=== PATIENT | male | born 1950 | race Caucasian/White ===

== ENCOUNTER 2022-06-10 17:13 | Inpatient (IN) ==
--- NOTE | 2022-06-10 17:44 | Emergency Department Note ---
Fall HPI General Chief Complaint: Fall Time Seen by Provider: 06/10/22 17:17 Source: patient and EMS Mode of arrival: wheelchair History of Present Illness HPI Narrative: Narrative: Related Data Home Medications Medication Instructions Recorded Confirmed cholecalciferol (vitamin D3) 25 2,000 unit PO QDAY 03/30/19 04/14/22 mcg (1,000 unit) capsule levothyroxine 200 mcg tablet 200 mcg PO QAM 03/30/19 04/14/22 (Synthroid) omeprazole 20 mg tablet,delayed 20 mg PO QDAY 03/30/19 04/14/22 release sildenafil 100 mg tablet (Viagra) 100 mg PO DIRECTED 03/30/19 04/14/22 trazodone 100 mg tablet 100 mg PO QHS 03/30/19 04/14/22 vitamin B complex PO 03/30/19 04/14/22 bupropion HCl 300 mg 24 hr tablet, 300 mg PO QAM 06/10/21 04/14/22 extended release carbamide peroxide 6.5 % ear drops 5 drp otic (ear) QDAY 06/10/21 04/14/22 fluticasone 250 mcg-salmeterol 50 1 inh inhalation BID 06/10/21 04/14/22 mcg/dose blistr powdr for inhalation food supplemt, lactose-reduced ea PO 06/10/21 04/14/22 gabapentin 300 mg capsule See Rx Instructions PO QID 06/10/21 04/14/22 nicotine (polacrilex) 2 mg buccal 2 mg buccal Q4H PRN 06/10/21 04/14/22 mini lozenge sertraline 100 mg tablet 300 mg PO QDAY 06/10/21 04/14/22 oxybutynin chloride 5 mg tablet 5 mg PO BID 10/29/21 04/14/22 prazosin 1 mg capsule 3 mg PO ONCE 10/29/21 04/14/22 propranolol 60 mg tablet 80 mg PO QDAY 10/29/21 04/14/22 Previous Rx's Medication Instructions Recorded carisoprodol 350 mg tablet (Soma) 350 mg PO BID PRN muscle pain #60 09/21/21 tabs cephalexin 500 mg capsule 500 mg PO BID #20 caps 01/27/22 hydrocodone 10 mg-acetaminophen 1 tab PO Q4-6H PRN pain #240 tabs 04/26/22 325 mg tablet ondansetron 4 mg disintegrating 4 - 8 mg PO Q6H PRN nausea and 05/09/22 tablet vomiting #20 tabs Allergies Allergy/AdvReac Type Severity Reaction Status Date / Time indomethacin [From Indocin] Allergy Unknown Unknown Verified 04/14/22 08:15 NSAIDS (Non-Steroidal Allergy Unknown Unknown Verified 04/14/22 08:15 Anti-Inflamma metformin AdvReac Diarrhea Verified 04/14/22 08:15 morphine AdvReac Hallucinati Verified 04/14/22 08:15 ng Review of Systems ROS ROS Narrative: Narrative: [facility] Narr[facility] Patient History Narrative: Narrative: Medical/Surgical/Family History All Active Problems (Updated 05/09/22 @ 16:49 by Pavan Hsu MD) Enteritis (Acute) Vomiting and diarrhea (Acute) Inclusion cyst (Acute) Concussion (Acute) Hypotension (Acute) Chronic pain (Acute) Right humeral fracture (Acute) Parkinsonian syndrome (Acute) Acute UTI (Acute) DDD (degenerative disc disease), cervical (Acute) Bladder cancer (Acute) Knee strain (Acute) Fall (Acute) History of knee replacement (Acute) Knee injury (Acute) Initial Medicare annual wellness visit (Acute) Pain management (Acute) Encounter for Health Maintenance Examination in Adult (Acute) History of colonoscopy (Chronic 04/29/14) History of total left knee replacement (Chronic ~06/2010) History of total right knee replacement (Chronic 07/13/04) History of surgery (Chronic) PUD (peptic ulcer disease) (Chronic ~09/2008) Resting tremor (Chronic) Foot drop, left (Chronic) GERD (gastroesophageal reflux disease) (Chronic) Osteoarthritis of right knee (Chronic) Tinnitus (Chronic) Hyperplastic colonic polyp (Chronic) Osteoarthritis of left knee (Chronic) Gastric ulcer, acute (Chronic) Allergic rhinitis (Chronic) PTSD (post-traumatic stress disorder) (Chronic) Neoplasm of uncertain behavior of skin (Chronic) Hypothyroidism (Chronic) Hyperlipidemia (Chronic) Dizziness (Chronic) Anemia (Chronic) Depression (Chronic) Right distal ureteral calculus (Chronic) Diabetes mellitus (Chronic) Other specified arthritis, right hand (Chronic) DDD (degenerative disc disease), lumbar (Chronic) Spondylolisthesis (Chronic) Abnormality of gait (Chronic) Carpal tunnel syndrome, right (Chronic) Encounter for long-term use of opiate analgesic (Chronic) Hypertension (Chronic) Elevated PSA (Chronic) BPH with obstruction/lower urinary tract symptoms (Chronic) Incomplete bladder emptying (Chronic) Kidney stone (Chronic) Prostate cancer (Chronic ~10/2018) Overactive bladder (Chronic) Foot sprain (Chronic) Medical History Abnormality of gait Allergic rhinitis Anemia BPH with obstruction/lower urinary tract symptoms Carpal tunnel syndrome, right Chronic pain DDD (degenerative disc disease), lumbar Depression Diabetes mellitus Dizziness Elevated PSA Encounter for long-term use of opiate analgesic Fall Foot drop, left Gastric ulcer, acute GERD (gastroesophageal reflux disease) Hyperlipidemia Hyperplastic colonic polyp Hypertension Hypothyroidism Incomplete bladder emptying Kidney stone Knee injury Knee strain Neoplasm of uncertain behavior of skin Osteoarthritis of left knee Osteoarthritis of right knee Other specified arthritis, right hand Overactive bladder Prostate cancer (~10/2018) referred to Carlo Saba MD PTSD (post-traumatic stress disorder) [facility] Vet PUD (peptic ulcer disease) (~09/2008) Resting tremor Right distal ureteral calculus Spondylolisthesis Tinnitus Surgical History History of bladder surgery x3 d/t cancer 2020 History of colonoscopy (04/29/14) History of knee replacement History of neck surgery d/t cancer 2020 History of surgery Nerve implant stimulator 05/09 - DDD L-S, Removed not effective. History of total left knee replacement (~06/2010) History of total right knee replacement (07/13/04) Dr Duarte Family History Other No pertinent family history Social History Alcohol Intake Frequency: does not drink Substance Use: does not use Exam Narrative Narrative: Narrative: Course Vital Signs Vital signs: Vital Signs Temperature 97.8 F 06/10/22 17:31 Pulse Rate 85 06/10/22 17:31 Respiratory Rate 16 06/10/22 17:31 Blood Pressure 119/70 06/10/22 17:31 Pulse Oximetry (%) 96 06/10/22 17:31 Temperature 97.8 F 06/10/22 17:31 Pulse Rate 85 06/10/22 17:31 Respiratory Rate 16 06/10/22 17:31 Blood Pressure 119/70 06/10/22 17:31 Pulse Oximetry (%) 96 06/10/22 17:31 MDM MDM Narrative Medical decision making narrative: Narrative: Discharge Plan Patient/Caregiver Discharge Instructions Follow up with: Storm Costa MD [Primary Care Provider] - Prescriptions: No Action sertraline 100 mg tablet 300 mg PO QDAY carisoprodol [Soma] 350 mg tablet 350 mg PO BID PRN (Reason: muscle pain) Qty: 60 5RF hydrocodone-acetaminophen 10-325 mg tablet 1 tab PO Q4-6H PRN (Reason: pain) Qty: 240 0RF Rx Instructions: Refill today 05/28/21 due to holidays ss trazodone 100 mg tablet 100 mg PO QHS omeprazole 20 mg tablet,delayed release (DR/EC) 20 mg PO QDAY cholecalciferol (vitamin D3) 1,000 unit capsule 2,000 unit PO QDAY sildenafil [Viagra] 100 mg tablet 100 mg PO DIRECTED Rx Instructions: no more than 1 dose per day/ 4 per month levothyroxine [Synthroid] 200 mcg tablet 200 mcg PO QAM vitamin B complex PO gabapentin 300 mg capsule See Rx Instructions PO QID Rx Instructions: 2 caps every morning and 4 caps every night cephalexin 500 mg capsule 500 mg PO BID Qty: 20 1RF bupropion HCl 300 mg tablet extended release 24 hr 300 mg PO QAM carbamide peroxide 6.5 % drops 5 drp otic (ear) QDAY fluticasone propion-salmeterol 250-50 mcg/dose blister with device 1 inh inhalation BID nicotine (polacrilex) 2 mg mini lozenge 2 mg buccal Q4H PRN food supplemt, lactose-reduced Liquid PO oxybutynin chloride 5 mg tablet 5 mg PO BID propranolol 60 mg tablet 80 mg PO QDAY prazosin 1 mg capsule 3 mg PO ONCE ondansetron 4 mg tablet,disintegrating 4 - 8 mg PO Q6H PRN (Reason: nausea and vomiting) Qty: 20 0RF
[2022-06-10] MEDS ORDERED: NICOTINE 14 MG PATCH TOPICAL ONE (17:55)
--- NOTE | 2022-06-10 17:55 | Emergency Department Note ---
HPI General Chief complaint: Fall Time Seen by Provider: 06/10/22 17:17 Source: patient, family and EMS Mode of arrival: EMS Limitations: no limitations History of Present Illness HPI Narrative: Narrative: Patient presents ED via EMS with complaints of altered mental status. Daughter was at bedside states that patient fell yesterday and has a contusion on the back of his head. She states that he has not been acting right seemed more confused and slower to answer questions. She does not know if he lost consci ousness or just found him on the floor. She also reports that he is stating that he is peeing blood. Patient himself denies fever, chills, nausea, vomiting, headache, vision changes, cardiac chest pain, heart palpitation, shortness of breath, dysuria. When asked if he is peeing blood he says he b elieves so. He reports a history of bladder cancer. Denies any blood thinner use. Denies any other alleviating or aggravating factors. Related Data Home Medications Medication Instructions Recorded Confirmed cholecalciferol (vitamin D3) 25 2,000 unit PO QDAY 03/30/19 04/14/22 mcg (1,000 unit) capsule levothyroxine 200 mcg tablet 200 mcg PO QAM 03/30/19 04/14/22 (Synthroid) omeprazole 20 mg tablet,delayed 20 mg PO QDAY 03/30/19 04/14/22 release sildenafil 100 mg tablet (Viagra) 100 mg PO DIRECTED 03/30/19 04/14/22 trazodone 100 mg tablet 100 mg PO QHS 03/30/19 04/14/22 vitamin B complex PO 03/30/19 04/14/22 bupropion HCl 300 mg 24 hr tablet, 300 mg PO QAM 06/10/21 04/14/22 extended release carbamide peroxide 6.5 % ear drops 5 drp otic (ear) QDAY 06/10/21 04/14/22 fluticasone 250 mcg-salmeterol 50 1 inh inhalation BID 06/10/21 04/14/22 mcg/dose blistr powdr for inhalation food supplemt, lactose-reduced ea PO 06/10/21 04/14/22 gabapentin 300 mg capsule See Rx Instructions PO QID 06/10/21 04/14/22 nicotine (polacrilex) 2 mg buccal 2 mg buccal Q4H PRN 06/10/21 04/14/22 mini lozenge sertraline 100 mg tablet 300 mg PO QDAY 06/10/21 04/14/22 oxybutynin chloride 5 mg tablet 5 mg PO BID 10/29/21 04/14/22 prazosin 1 mg capsule 3 mg PO ONCE 10/29/21 04/14/22 propranolol 60 mg tablet 80 mg PO QDAY 10/29/21 04/14/22 Previous Rx's Medication Instructions Recorded carisoprodol 350 mg tablet (Soma) 350 mg PO BID PRN muscle pain #60 09/21/21 tabs cephalexin 500 mg capsule 500 mg PO BID #20 caps 01/27/22 hydrocodone 10 mg-acetaminophen 1 tab PO Q4-6H PRN pain #240 tabs 04/26/22 325 mg tablet ondansetron 4 mg disintegrating 4 - 8 mg PO Q6H PRN nausea and 05/09/22 tablet vomiting #20 tabs Allergies Allergy/AdvReac Type Severity Reaction Status Date / Time indomethacin [From Indocin] Allergy Unknown Unknown Verified 04/14/22 08:15 NSAIDS (Non-Steroidal Allergy Unknown Unknown Verified 04/14/22 08:15 Anti-Inflamma metformin AdvReac Diarrhea Verified 04/14/22 08:15 morphine AdvReac Hallucinati Verified 04/14/22 08:15 ng Review of Systems ROS ROS Narrative: Narrative: All systems ED: reviewed and negative except as stated. [facility] Narrative Patient History Narrative: Narrative: Medical/Surgical/Family History All Active Problems (Updated 06/10/22 @ 21:17 by Eleazar Whitmore DO) Enteritis (Acute) Vomiting and diarrhea (Acute) Sepsis (Acute) Bilateral pneumonia (Acute) Altered mental status (Acute) Inclusion cyst (Acute) Concussion (Acute) Hypotension (Acute) Chronic pain (Acute) Right humeral fracture (Acute) Parkinsonian syndrome (Acute) Acute UTI (Acute) DDD (degenerative disc disease), cervical (Acute) Bladder cancer (Acute) Knee strain (Acute) Fall (Acute) History of knee replacement (Acute) Knee injury (Acute) Initial Medicare annual wellness visit (Acute) Pain management (Acute) Encounter for Health Maintenance Examination in Adult (Acute) History of colonoscopy (Chronic 04/29/14) History of total left knee replacement (Chronic ~06/2010) History of total right knee replacement (Chronic 07/13/04) History of surgery (Chronic) PUD (peptic ulcer disease) (Chronic ~09/2008) Resting tremor (Chronic) Foot drop, left (Chronic) GERD (gastroesophageal reflux disease) (Chronic) Osteoarthritis of right knee (Chronic) Tinnitus (Chronic) Hyperplastic colonic polyp (Chronic) Osteoarthritis of left knee (Chronic) Gastric ulcer, acute (Chronic) Allergic rhinitis (Chronic) PTSD (post-traumatic stress disorder) (Chronic) Neoplasm of uncertain behavior of skin (Chronic) Hypothyroidism (Chronic) Hyperlipidemia (Chronic) Dizziness (Chronic) Anemia (Chronic) Depression (Chronic) Right distal ureteral calculus (Chronic) Diabetes mellitus (Chronic) Other specified arthritis, right hand (Chronic) DDD (degenerative disc disease), lumbar (Chronic) Spondylolisthesis (Chronic) Abnormality of gait (Chronic) Carpal tunnel syndrome, right (Chronic) Encounter for long-term use of opiate analgesic (Chronic) Hypertension (Chronic) Elevated PSA (Chronic) BPH with obstruction/lower urinary tract symptoms (Chronic) Incomplete bladder emptying (Chronic) Kidney stone (Chronic) Prostate cancer (Chronic ~10/2018) Overactive bladder (Chronic) Foot sprain (Chronic) Medical History Abnormality of gait Allergic rhinitis Anemia BPH with obstruction/lower urinary tract symptoms Carpal tunnel syndrome, right Chronic pain DDD (degenerative disc disease), lumbar Depression Diabetes mellitus Dizziness Elevated PSA Encounter for long-term use of opiate analgesic Fall Foot drop, left Gastric ulcer, acute GERD (gastroesophageal reflux disease) Hyperlipidemia Hyperplastic colonic polyp Hypertension Hypothyroidism Incomplete bladder emptying Kidney stone Knee injury Knee strain Neoplasm of uncertain behavior of skin Osteoarthritis of left knee Osteoarthritis of right knee Other specified arthritis, right hand Overactive bladder Prostate cancer (~10/2018) referred to Carlo Saba MD PTSD (post-traumatic stress disorder) [facility] Vet PUD (peptic ulcer disease) (~09/2008) Resting tremor Right distal ureteral calculus Spondylolisthesis Tinnitus Surgical History History of bladder surgery x3 d/t cancer 2020 History of colonoscopy (04/29/14) History of knee replacement History of neck surgery d/t cancer 2020 History of surgery Nerve implant stimulator 05/09 - DDD L-S, Removed not effective. History of total left knee replacement (~06/2010) History of total right knee replacement (07/13/04) Dr Duarte Family History Other No pertinent family history Social History Alcohol Intake Frequency: does not drink Substance Use: does not use Exam Narrative Narrative: Narrative: General Limitations: no limitations General appearance: Absent in distress Expanded Head Head image: 1. Head contusion Eye Eye: Present PERRL and EOMI ENT ENT: Present normal oropharynx and mucous membranes moist Neck Neck: Present normal inspection and full ROM Chest Chest: Present normal inspection; Absent tenderness Respiratory Respiratory: Present normal lung sounds bilaterally; Absent respiratory distress Cardiovascular Cardiovascular: Present regular rate and normal rhythm Adbominal Abdominal: Present soft; Absent tenderness Extremities Extremities: Present normal inspection and normal capillary refill Back Back: Absent CVA tenderness (R), CVA tenderness (L) or L-S tenderness Neurological Neurological: Present alert Psychiatric Psychiatric: Present normal affect and normal mood Skin Skin: Present warm (WNL) and intact Course Course Course Narrative: Patient was evaluated secondary to a fall. CT of the head and cervical spine obtained with image reviewed myself with no acute findings. Labs show that patient had elevated white cell count. Lactic acid was normal. Urine was unremarkable. Chest x-ray obtained with image reviewed myself which concerning for bilateral pneumonia. Patient does meet sepsis criteria with tachypnea, leukocytosis and source of infection. Also patient was requiring 2 L of oxygen via nasal can to maintain adequate oxygen saturation. He was then 86% on room air upon arrival. Blood cultures were obtained and patient was given IV Ro cephin and azithromycin. Case was discussed with hospitalist who has agreed to admit the patient. Plan of care was discussed with patient's son and granddaughter who are both at bedside and they expressed verbal understanding and agreement Reevaluation(s) Reevaluation #1: Patient remains hemodynamically stable. No new complaints at this time Time: 18:25 Consultations Consultation #1: Case discussed with hospitalist was agreed to admit the patient. T Time: 21:55 Vital Signs Vital signs: Vital Signs Temperature 97.8 F 06/10/22 17:31 Pulse Rate 85 06/10/22 17:31 Respiratory Rate 16 06/10/22 17:31 Blood Pressure 119/70 06/10/22 17:31 Pulse Oximetry (%) 96 06/10/22 17:31 Temperature 97.8 F 06/10/22 17:31 Pulse Rate 86 06/10/22 21:13 Respiratory Rate 23 H 06/10/22 21:13 Blood Pressure 105/49 06/10/22 21:13 Pulse Oximetry (%) 100 06/10/22 21:12 Oxygen Delivery Method 06/10/22 20:18 Oxygen Flow Rate (L/min) 2 06/10/22 20:18 MDM MDM Narrative Medical decision making narrative: Narrative: Differential Diagnosis Differential Diagnosis: Altered mental status, intracranial bleed, concussion, hematuria, UTI Medical Records Medical records reviewed: Yes I reviewed the patient's medical records. Lab Data Lab results reviewed: Yes I reviewed the patient's lab results. Result diagrams: 06/10/22 17:55 Labs: Lab Results 06/10/22 06/10/22 06/10/22 Range/Units 17:55 17:55 17:55 WBC 16.3 H (4.5-11.0) K/mcL RBC 2.96 L (4.63-6.08) M/mcL Hgb 9.4 L (13.7-17.5) g/dL Hct 29.6 L (40.1-51.0) % POC Hct (41-55) MCV 100.0 (80.0-100.0) fL MCH 31.8 (26.0-34.0) pg MCHC 31.8 (31.0-36.0) g/dL RDW 12.9 (11.5-14.5) % Plt Count 197 (140-440) K/mcL MPV 10.9 (8.8-12.5) fL Immature Gran % (Auto) 0.4 (0.0-0.5) % Neut % (Auto) 90.9 H (38.0-78.0) % Lymph % (Auto) 4.3 L (15.5-49.0) % [place] % (Auto) 3.9 (1.0-12.0) % Eos % (Auto) 0.1 (0.0-7.0) % Baso % (Auto) 0.4 (0.0-2.0) % Lymph # (Auto) 0.70 L (1.50-4.80) K/mcL [place] # (Auto) 0.64 (0.10-0.90) K/mcL Eos # (Auto) 0.01 (0.00-0.70) K/mcL Baso # (Auto) 0.06 (0.00-0.30) K/mcL Immature Gran # 0.06 H (0.00-0.05) K/mcl Absolute Neutrophils 14.87 H (1.80-8.00) K/mcL POC VBG pH (7.32-7.42) POC VBG pCO2 at Temp (41-51) POC VBG pO2 (25-40) POC VBG HCO3 (24-28) POC VBG Total CO2 (25-29) POC Venous O2 Sat (40-70) POC VBG Base Excess (-2-2) VBG Lactic Acid (0.5-2) POC Sodium (133-145) POC Potassium (3.3-5.1) POC Chloride (96-108) POC Total CO2 (22-30) POC BUN (6-20) POC Creatinine (0.6-1.2) POC Glucose (70-105) POC WB Ioniz Calcium (1.16-1.32) Total Bilirubin 0.3 (0.1-1.0) mg/dL Direct Bilirubin < 0.2 (0-0.3) mg/dL AST 26 (<40) U/L ALT 16 (<40) U/L Alkaline Phosphatase 63 (39-117) U/L Ammonia 14 L (16-60) umol/L Total Protein 6.2 (5.9-8.4) gm/dL Albumin 3.7 (3.2-5.2) gm/dL Globulin 2.5 (2.2-3.7) gm/dL Procalcitonin (<0.10) ng/mL Ethyl Alcohol mg/dL mg/dL Ethyl Alcohol g/dL (<0.010) gm/dL 06/10/22 06/10/22 06/10/22 Range/Units 17:55 17:55 17:58 WBC (4.5-11.0) K/mcL RBC (4.63-6.08) M/mcL Hgb (13.7-17.5) g/dL Hct (40.1-51.0) % POC Hct 30.0 L (41-55) MCV (80.0-100.0) fL MCH (26.0-34.0) pg MCHC (31.0-36.0) g/dL RDW (11.5-14.5) % Plt Count (140-440) K/mcL MPV (8.8-12.5) fL Immature Gran % (Auto) (0.0-0.5) % Neut % (Auto) (38.0-78.0) % Lymph % (Auto) (15.5-49.0) % [place] % (Auto) (1.0-12.0) % Eos % (Auto) (0.0-7.0) % Baso % (Auto) (0.0-2.0) % Lymph # (Auto) (1.50-4.80) K/mcL [place] # (Auto) (0.10-0.90) K/mcL Eos # (Auto) (0.00-0.70) K/mcL Baso # (Auto) (0.00-0.30) K/mcL Immature Gran # (0.00-0.05) K/mcl Absolute Neutrophils (1.80-8.00) K/mcL POC VBG pH (7.32-7.42) POC VBG pCO2 at Temp (41-51) POC VBG pO2 (25-40) POC VBG HCO3 (24-28) POC VBG Total CO2 (25-29) POC Venous O2 Sat (40-70) POC VBG Base Excess (-2-2) VBG Lactic Acid (0.5-2) POC Sodium 143 (133-145) POC Potassium 4.3 (3.3-5.1) POC Chloride 104 (96-108) POC Total CO2 30.0 (22-30) POC BUN 28 H (6-20) POC Creatinine 1.1 (0.6-1.2) POC Glucose 121 H (70-105) POC WB Ioniz Calcium 1.21 (1.16-1.32) Total Bilirubin (0.1-1.0) mg/dL Direct Bilirubin (0-0.3) mg/dL AST (<40) U/L ALT (<40) U/L Alkaline Phosphatase (39-117) U/L Ammonia (16-60) umol/L Total Protein (5.9-8.4) gm/dL Albumin (3.2-5.2) gm/dL Globulin (2.2-3.7) gm/dL Procalcitonin 12.66 H (<0.10) ng/mL Ethyl Alcohol mg/dL < 10.0 mg/dL Ethyl Alcohol g/dL < 0.010 (<0.010) gm/dL 06/10/22 Range/Units 20:34 WBC (4.5-11.0) K/mcL RBC (4.63-6.08) M/mcL Hgb (13.7-17.5) g/dL Hct (40.1-51.0) % POC Hct (41-55) MCV (80.0-100.0) fL MCH (26.0-34.0) pg MCHC (31.0-36.0) g/dL RDW (11.5-14.5) % Plt Count (140-440) K/mcL MPV (8.8-12.5) fL Immature Gran % (Auto) (0.0-0.5) % Neut % (Auto) (38.0-78.0) % Lymph % (Auto) (15.5-49.0) % [place] % (Auto) (1.0-12.0) % Eos % (Auto) (0.0-7.0) % Baso % (Auto) (0.0-2.0) % Lymph # (Auto) (1.50-4.80) K/mcL [place] # (Auto) (0.10-0.90) K/mcL Eos # (Auto) (0.00-0.70) K/mcL Baso # (Auto) (0.00-0.30) K/mcL Immature Gran # (0.00-0.05) K/mcl Absolute Neutrophils (1.80-8.00) K/mcL POC VBG pH 7.53 H (7.32-7.42) POC VBG pCO2 at Temp 27.7 L (41-51) POC VBG pO2 37 (25-40) POC VBG HCO3 23.0 L (24-28) POC VBG Total CO2 24.0 L (25-29) POC Venous O2 Sat 78.0 H (40-70) POC VBG Base Excess 0 (-2-2) VBG Lactic Acid 1.5 (0.5-2) POC Sodium (133-145) POC Potassium (3.3-5.1) POC Chloride (96-108) POC Total CO2 (22-30) POC BUN (6-20) POC Creatinine (0.6-1.2) POC Glucose (70-105) POC WB Ioniz Calcium (1.16-1.32) Total Bilirubin (0.1-1.0) mg/dL Direct Bilirubin (0-0.3) mg/dL AST (<40) U/L ALT (<40) U/L Alkaline Phosphatase (39-117) U/L Ammonia (16-60) umol/L Total Protein (5.9-8.4) gm/dL Albumin (3.2-5.2) gm/dL Globulin (2.2-3.7) gm/dL Procalcitonin (<0.10) ng/mL Ethyl Alcohol mg/dL mg/dL Ethyl Alcohol g/dL (<0.010) gm/dL ED POC Tests ED POC Tests: TRACEY - Influenza A Negative TRACEY - Influenza B Negative TRACEY - SARS Antigen Negative Radiology Data Radiology results reviewed: Yes I reviewed the patient's radiology results. Radiology results narrative: CT of the head and cervical spine obtained with image reviewed myself, no acute findings Chest x-ray obtained with image reviewed myself concerning for pneumonia EKG Data EKG #1: EKG attestation: Yes I reviewed and interpreted this EKG. EKG shows normal: sinus rhythm Rate: normal Rhythm: NSR [place]/QRS: normal Heart block present: None ST segment elevation in: None ST segment depression in: None QTc: normal QRS morphology: Present normal Interpretation: no acute changes Core Measures AMI Core Measures Followed: Yes Discharge Plan Patient/Caregiver Discharge Instructions Pt seen by DIRECTOR OF NEUROLOGY/PA only: No Clinical Impression: Sepsis, Bilateral pneumonia, Altered mental status Patient Disposition: Xfer As Outpt/Obs ([facility]) Condition: Fair Follow up with: Storm Costa MD [Primary Care Provider] - Prescriptions: No Action sertraline 100 mg tablet 300 mg PO QDAY carisoprodol [Soma] 350 mg tablet 350 mg PO BID PRN (Reason: muscle pain) Qty: 60 5RF hydrocodone-acetaminophen 10-325 mg tablet 1 tab PO Q4-6H PRN (Reason: pain) Qty: 240 0RF Rx Instructions: Refill today 05/28/21 due to holidays ss trazodone 100 mg tablet 100 mg PO QHS omeprazole 20 mg tablet,delayed release (DR/EC) 20 mg PO QDAY cholecalciferol (vitamin D3) 1,000 unit capsule 2,000 unit PO QDAY sildenafil [Viagra] 100 mg tablet 100 mg PO DIRECTED Rx Instructions: no more than 1 dose per day/ 4 per month levothyroxine [Synthroid] 200 mcg tablet 200 mcg PO QAM vitamin B complex PO gabapentin 300 mg capsule See Rx Instructions PO QID Rx Instructions: 2 caps every morning and 4 caps every night cephalexin 500 mg capsule 500 mg PO BID Qty: 20 1RF bupropion HCl 300 mg tablet extended release 24 hr 300 mg PO QAM carbamide peroxide 6.5 % drops 5 drp otic (ear) QDAY fluticasone propion-salmeterol 250-50 mcg/dose blister with device 1 inh inhalation BID nicotine (polacrilex) 2 mg mini lozenge 2 mg buccal Q4H PRN food supplemt, lactose-reduced Liquid PO oxybutynin chloride 5 mg tablet 5 mg PO BID propranolol 60 mg tablet 80 mg PO QDAY prazosin 1 mg capsule 3 mg PO ONCE ondansetron 4 mg tablet,disintegrating 4 - 8 mg PO Q6H PRN (Reason: nausea and vomiting) Qty: 20 0RF
[2022-06-10 18:01] LABS: POC Calcium, Ionized 1.21 (1.16-1.32); POC Creatinine 1.1 (0.6-1.2); POC Potassium 4.3 (3.3-5.1)
[2022-06-10 18:50] LABS: Basophils # (Auto) 0.06 K/mcL (0.00-0.30); Basophils % (Auto) 0.4 % (0.0-2.0); Eosinophils # (Auto) 0.01 K/mcL (0.00-0.70); Eosinophils % (Auto) 0.1 % (0.0-7.0); Hematocrit 29.6 % (40.1-51.0); Hemoglobin 9.4 g/dL (13.7-17.5); Lymphocytes % (Auto) 4.3 % (15.5-49.0); Mean Corpuscular HGB Conc 31.8 g/dL (31.0-36.0); Mean Platelet Volume 10.9 fL (8.8-12.5); Monocytes # (Auto) 0.64 K/mcL (0.10-0.90); Monocytes % (Auto) 3.9 % (1.0-12.0); Neutrophils % (Auto) 90.9 % (38.0-78.0); Platelet Count 197 K/mcL (140-440); RBC 2.96 M/mcL (4.63-6.08); Red Cell Distribution Width 12.9 % (11.5-14.5); WBC 16.3 K/mcL (4.5-11.0)
[2022-06-10 19:34] LABS: ALT/SGPT 16 U/L (<40); AST/SGOT 26 U/L (<40); Albumin 3.7 gm/dL (3.2-5.2); Alkaline Phosphatase 63 U/L (39-117); Bilirubin,Direct < 0.2 mg/dL (0-0.3); Bilirubin,Total 0.3 mg/dL (0.1-1.0); Globulin 2.5 gm/dL (2.2-3.7)
[2022-06-10 20:00] LABS: Alcohol, Blood < 10.0 mg/dL; Alcohol,Blood < 0.010 gm/dL (<0.010)
[2022-06-10] MEDS ORDERED: cefTRIAXone 2 GM in DEXTROSE 5% IN WATER 50 ML IV ONE (21:02)
[2022-06-10] MEDS ORDERED: AZITHROMYCIN 500 MG in DEXTROSE 5% IN WATER 250 ML IV ONE (21:02)
--- NOTE | 2022-06-10 21:59 | Internal Med History&Physical ---
HPI History of Present Illness Patient information: Note initiated : 06/10/22 at 9:44 pm Service Date, if different from initiated Date: [] Patient: Tae Newell Sr a 71 y/o M admitted on for Fall. Chief Complaint: [] History of present illness: Mr. Reece Henderson is a 71 year old M Presents the ED for Fall confusion weakness. History is obtained from the family as the patient is unable to provide history. Patient lives by himself ambulates with a cane. [place] for syncope felt possibly polypharmacy. [facility]. Per the family he was in the hospital few months ago although the time I was unable to clarify what hospital he was at and possibly the ER Remaining the [place] visit. Patient has not been doing that great since hospitalization. Studies been weak and talking less. Follows regularly. He fell this morning which was unwitnessed. He had vomited family thinks he might have vomited before but is hard to say and they are concerned he might of aspirated some of his vomit. The granddaughter was there around [place] o'clock and witnessed a fall when he was try to get on his slippers. Patient has not been verbal since then. In the ED he had a CT of the head and neck which were unremarkable per discussion with ED provider. Chest x-ray with bilateral infiltrates. BUN to creatinine ratio elevated at 28 and 1.1. Procalcitonin elevated at 12. Lactate within normal limits and pH of 7.5 with a CO2 of 27. Leukocytosis of 16. Systolic blood pressure low 100s. Afebrile. Patient complains of headache denies shortness of breath but admits to cough, he answers through nodding his head and mouths the answer on occasion. Does complain of increased back pain since the fall. He has a chronic cough its been worse lately per family. He has had diarrhea for several months. EKG normal sinus Review of Systems: Pertinent positives as above. Denies /fever/chills/. Remaining 10 point review of system reviewed [facility] All Active Problems (Updated 06/10/22 @ 21:17 by Eleazar Whitmoer DO) Enteritis (Acute) Vomiting and diarrhea (Acute) Sepsis (Acute) Bilateral pneumonia (Acute) Altered mental status (Acute) Inclusion cyst (Acute) Concussion (Acute) Hypotension (Acute) Chronic pain (Acute) Right humeral fracture (Acute) Parkinsonian syndrome (Acute) Acute UTI (Acute) DDD (degenerative disc disease), cervical (Acute) Bladder cancer (Acute) Knee strain (Acute) Fall (Acute) History of knee replacement (Acute) Knee injury (Acute) Initial Medicare annual wellness visit (Acute) Pain management (Acute) Encounter for Health Maintenance Examination in Adult (Acute) History of colonoscopy (Chronic 04/29/14) History of total left knee replacement (Chronic ~06/2010) History of total right knee replacement (Chronic 07/13/04) History of surgery (Chronic) PUD (peptic ulcer disease) (Chronic ~09/2008) Resting tremor (Chronic) Foot drop, left (Chronic) GERD (gastroesophageal reflux disease) (Chronic) Osteoarthritis of right knee (Chronic) Tinnitus (Chronic) Hyperplastic colonic polyp (Chronic) Osteoarthritis of left knee (Chronic) Gastric ulcer, acute (Chronic) Allergic rhinitis (Chronic) PTSD (post-traumatic stress disorder) (Chronic) Neoplasm of uncertain behavior of skin (Chronic) Hypothyroidism (Chronic) Hyperlipidemia (Chronic) Dizziness (Chronic) Anemia (Chronic) Depression (Chronic) Right distal ureteral calculus (Chronic) Diabetes mellitus (Chronic) Other specified arthritis, right hand (Chronic) DDD (degenerative disc disease), lumbar (Chronic) Spondylolisthesis (Chronic) Abnormality of gait (Chronic) Carpal tunnel syndrome, right (Chronic) Encounter for long-term use of opiate analgesic (Chronic) Hypertension (Chronic) Elevated PSA (Chronic) BPH with obstruction/lower urinary tract symptoms (Chronic) Incomplete bladder emptying (Chronic) Kidney stone (Chronic) Prostate cancer (Chronic ~10/2018) Overactive bladder (Chronic) Foot sprain (Chronic) Medical History Abnormality of gait Allergic rhinitis Anemia BPH with obstruction/lower urinary tract symptoms Carpal tunnel syndrome, right Chronic pain DDD (degenerative disc disease), lumbar Depression Diabetes mellitus Dizziness Elevated PSA Encounter for long-term use of opiate analgesic Fall Foot drop, left Gastric ulcer, acute GERD (gastroesophageal reflux disease) Hyperlipidemia Hyperplastic colonic polyp Hypertension Hypothyroidism Incomplete bladder emptying Kidney stone Knee injury Knee strain Neoplasm of uncertain behavior of skin Osteoarthritis of left knee Osteoarthritis of right knee Other specified arthritis, right hand Overactive bladder Prostate cancer (~10/2018) referred to Carlo Saba MD PTSD (post-traumatic stress disorder) [facility] PUD (peptic ulcer disease) (~09/2008) Resting tremor Right distal ureteral calculus Spondylolisthesis Tinnitus Surgical History History of bladder surgery x3 d/t cancer 2020 History of colonoscopy (04/29/14) History of knee replacement History of neck surgery d/t cancer 2020 History of surgery Nerve implant stimulator 05/09 - DDD L-S, Removed not effective. History of total left knee replacement (~06/2010) History of total right knee replacement (07/13/04) Dr Duarte Family History Other No pertinent family history Social History household members: spouse marital status: service: Yes occupational status: retired occupational exposures/hazards: Yes other: [facility] [place] 1972, exposure to [employer] [place] alcohol intake frequency: does not drink substance use type: does not use MEDS/ALLERGIES Home Medications and Allergies Home Medications Medication Instructions Recorded Confirmed Type cholecalciferol (vitamin D3) 25 2,000 unit PO QDAY 03/30/19 04/14/22 History mcg (1,000 unit) capsule levothyroxine 200 mcg tablet 200 mcg PO QAM 03/30/19 04/14/22 History (Synthroid) omeprazole 20 mg tablet,delayed 20 mg PO QDAY 03/30/19 04/14/22 History release sildenafil 100 mg tablet (Viagra) 100 mg PO DIRECTED 03/30/19 04/14/22 History trazodone 100 mg tablet 100 mg PO QHS 03/30/19 04/14/22 History vitamin B complex PO 03/30/19 04/14/22 History bupropion HCl 300 mg 24 hr tablet, 300 mg PO QAM 06/10/21 04/14/22 History extended release carbamide peroxide 6.5 % ear drops 5 drp otic (ear) QDAY 06/10/21 04/14/22 History fluticasone 250 mcg-salmeterol 50 1 inh inhalation BID 06/10/21 04/14/22 History mcg/dose blistr powdr for inhalation food supplemt, lactose-reduced ea PO 06/10/21 04/14/22 History gabapentin 300 mg capsule See Rx Instructions PO QID 06/10/21 04/14/22 History nicotine (polacrilex) 2 mg buccal 2 mg buccal Q4H PRN 06/10/21 04/14/22 History mini lozenge sertraline 100 mg tablet 300 mg PO QDAY 06/10/21 04/14/22 History carisoprodol 350 mg tablet (Soma) 350 mg PO BID PRN muscle pain #60 09/21/21 04/14/22 Rx tabs oxybutynin chloride 5 mg tablet 5 mg PO BID 10/29/21 04/14/22 History prazosin 1 mg capsule 3 mg PO ONCE 10/29/21 04/14/22 History propranolol 60 mg tablet 80 mg PO QDAY 10/29/21 04/14/22 History cephalexin 500 mg capsule 500 mg PO BID #20 caps 01/27/22 04/14/22 Rx hydrocodone 10 mg-acetaminophen 1 tab PO Q4-6H PRN pain #240 tabs 04/26/22 Rx 325 mg tablet ondansetron 4 mg disintegrating 4 - 8 mg PO Q6H PRN nausea and 05/09/22 Rx tablet vomiting #20 tabs Allergies Allergy/AdvReac Type Severity Reaction Status Date / Time indomethacin [From Indocin] Allergy Unknown Unknown Verified 04/14/22 08:15 NSAIDS (Non-Steroidal Allergy Unknown Unknown Verified 04/14/22 08:15 Anti-Inflamma metformin AdvReac Diarrhea Verified 04/14/22 08:15 morphine AdvReac Hallucinati Verified 04/14/22 08:15 ng EXAM Constitutional Vitals: Temp Pulse Resp BP Pulse Ox O2 Del Method O2 Flow Rate 97.8 F 86 23 H 105/49 100 2 06/10/22 17:31 06/10/22 21:13 06/10/22 21:13 06/10/22 21:13 06/10/22 21:12 06/10/22 20:18 06/10/22 20:18 Exam: General: Awake, No acute Distress Eyes/N/T: EOMI, PERRL, dry MM Head/Neck: neck supple, normocephalic atraumatic CV: RRR, No murmurs, normal s1/s2 Pulm: Rhonchi b/l, mild wheezing b/l Abd: soft, nontender, +BS x4 Ext: no clubbing/cyanosis/edema Neuro: Alert, no focal deficits, moves all extremities, CN 2-12 grossly intact, follows commands but does not verbalize Skin: warm/dry DATA Data Completed and Pending Labs: Labs from last 24 hours 06/10/22 06/10/22 06/10/22 20:34 17:58 17:55 WBC RBC Hgb Hct POC Hct 30.0 L MCV MCH MCHC RDW Plt Count MPV Immature Gran % (Auto) Neut % (Auto) Lymph % (Auto) Beckham % (Auto) Eos % (Auto) Baso % (Auto) Lymph # (Auto) Beckham # (Auto) Eos # (Auto) Baso # (Auto) Immature Gran # Absolute Neutrophils POC VBG pH 7.53 H POC VBG pCO2 at Temp 27.7 L POC VBG pO2 37 POC VBG HCO3 23.0 L POC VBG Total CO2 24.0 L POC Venous O2 Sat 78.0 H POC VBG Base Excess 0 VBG Lactic Acid 1.5 POC Sodium 143 POC Potassium 4.3 POC Chloride 104 POC Total CO2 30.0 POC BUN 28 H POC Creatinine 1.1 POC Glucose 121 H POC WB Ioniz Calcium 1.21 Total Bilirubin Direct Bilirubin AST ALT Alkaline Phosphatase Ammonia Total Protein Albumin Globulin Procalcitonin Ethyl Alcohol mg/dL < 10.0 Ethyl Alcohol g/dL < 0.010 06/10/22 06/10/22 06/10/22 17:55 17:55 17:55 WBC RBC Hgb Hct POC Hct MCV MCH MCHC RDW Plt Count MPV Immature Gran % (Auto) Neut % (Auto) Lymph % (Auto) Beckham % (Auto) Eos % (Auto) Baso % (Auto) Lymph # (Auto) Beckham # (Auto) Eos # (Auto) Baso # (Auto) Immature Gran # Absolute Neutrophils POC VBG pH POC VBG pCO2 at Temp POC VBG pO2 POC VBG HCO3 POC VBG Total CO2 POC Venous O2 Sat POC VBG Base Excess VBG Lactic Acid POC Sodium POC Potassium POC Chloride POC Total CO2 POC BUN POC Creatinine POC Glucose POC WB Ioniz Calcium Total Bilirubin 0.3 Direct Bilirubin < 0.2 AST 26 ALT 16 Alkaline Phosphatase 63 Ammonia 14 L Total Protein 6.2 Albumin 3.7 Globulin 2.5 Procalcitonin 12.66 H Ethyl Alcohol mg/dL Ethyl Alcohol g/dL 06/10/22 17:55 WBC 16.3 H RBC 2.96 L Hgb 9.4 L Hct 29.6 L POC Hct MCV 100.0 MCH 31.8 MCHC 31.8 RDW 12.9 Plt Count 197 MPV 10.9 Immature Gran % (Auto) 0.4 Neut % (Auto) 90.9 H Lymph % (Auto) 4.3 L Beckham % (Auto) 3.9 Eos % (Auto) 0.1 Baso % (Auto) 0.4 Lymph # (Auto) 0.70 L Beckham # (Auto) 0.64 Eos # (Auto) 0.01 Baso # (Auto) 0.06 Immature Gran # 0.06 H Absolute Neutrophils 14.87 H POC VBG pH POC VBG pCO2 at Temp POC VBG pO2 POC VBG HCO3 POC VBG Total CO2 POC Venous O2 Sat POC VBG Base Excess VBG Lactic Acid POC Sodium POC Potassium POC Chloride POC Total CO2 POC BUN POC Creatinine POC Glucose POC WB Ioniz Calcium Total Bilirubin Direct Bilirubin AST ALT Alkaline Phosphatase Ammonia Total Protein Albumin Globulin Procalcitonin Ethyl Alcohol mg/dL Ethyl Alcohol g/dL A/P Narrative A/P Narrative: A: *Acute hypoxic respiratory failure: 2/2 aspiration versus aspiration pneumonia *Aspiration PNA: *Sepsis: *Metabolic encephalopathy: *Generalized weakness/deconditioning/falling/debility: Patient has been declining since last hospitalization per family *Dementia: *Volume depletion: *Pre-DM2: -A1c *CKD II: *Anemia, chronic: *PREETHI on CPAP: *COPD (not on home O2): *HTN: *Depression: *Essential tremor: On propranolol *Hypothyroidism: *GERD: *Tobacco abuse: *Chronic back pain: P: -O2 supp, wean as able -abx, pending BC/SC -UA -IS/Acapella, prn nebs, RT -quad viral panel -IVF -lumbar/thoracic xray -cpap qhs - -Home medication reconciliation -Smoking cessation counseling >3 minutes -PT/OT -CM for placement needs -ppx: lovenox /home PPI Time Spent With Patient Time: Total time spent is greater than 50% in coordination of care (as documented) at patient's floor/unit and/or counseling patient: Total time spent with greater than 50% in coordination of care (as documented) at patient's floor/unit and/or counseling patient:: Greater than 70 minutes
[2022-06-10] MEDS ORDERED: POTASSIUM CHLORIDE 40 MEQ in DEXTROSE 5% IN WATER 500 ML IV PRN (23:59)
[2022-06-10] MEDS ORDERED: DEXTROSE 31 GM ORAL.SUSP PO PRN (23:59)
[2022-06-10] MEDS ORDERED: SENNOSIDES 1 TABLET PO PRN (23:59)
[2022-06-10] MEDS ORDERED: POLYETHYLENE GLYCOL 3350 17 GM PACKET PO PRN (23:59)
[2022-06-10] MEDS ORDERED: ONDANSETRON 4 MG/2 ML VIAL IV PRN (23:59)
[2022-06-10] MEDS ORDERED: DEXTROSE 50% 50 ML VIAL IV PRN (23:59)
[2022-06-10] MEDS ORDERED: POTASSIUM CHLORIDE 20 MEQ TABLET PO PRN ×2 (23:59)
[2022-06-10] MEDS ORDERED: MAGNESIUM SULFATE 2 GM/50 ML BAG IV PRN (23:59)
[2022-06-10] MEDS ORDERED: cefTRIAXone 1 GM in DEXTROSE 5% IN WATER 50 ML IV SCH (23:59)
[2022-06-10] MEDS ORDERED: IPRATROPIUM/ALBUTEROL 3 ML AMPUL.NEB NEB PRN (23:59)
[2022-06-11] MEDS ORDERED: OLANZapine 2.5 MG TABLET PO ONE (00:30)
[2022-06-11] MEDS: diphenhydrAMINE 25 MG CAPSULE PO PRN (00:31)
[2022-06-11] MEDS ORDERED: diphenhydrAMINE 25 MG CAPSULE ONE (00:31)
[2022-06-11] MEDS: 0.9 % SODIUM CHLORIDE 1,000 ML IV SCH ×2 (00:32→13:00)
[2022-06-11] MEDS: AZITHROMYCIN 500 MG in DEXTROSE 5% IN WATER 250 ML IV SCH ×2 (00:38→10:28)
[2022-06-11] MEDS ORDERED: metroNIDAZOLE 100 ML IV ONE (00:42)
[2022-06-11] MEDS: metroNIDAZOLE 500 MG/100 ML BAG IV SCH ×4 (00:47→20:48)
--- NOTE | 2022-06-11 00:57 | Internal Med Progress Note ---
SUBJECTIVE Subjective Patient information: Note initiated : 06/11/22 at 12:53 am Service Date, if different from initiated Date: [] Patient: Tae Newell Sr a 71 y/o M admitted on 06/10/22 for Fall. Chief Complaint: [] Interval history: History of present illness: Mr. Reece Henderson is a 71 year old M Presents the ED for Fall confusion weakness. History is obtained from the family as the patient is unable to provide history. Patient lives by himself ambulates with a cane. [place] for syncope felt possibly polypharmacy. [facility]. Per the family he was in the hospital few months ago although the time I was unable to clarify what hospital he was at and possibly the ER Remaining the [place] visit. Patient has not been doing that great since hospitalization. Studies been weak and talking less. Follows regularly. He fell this morning which was unwitnessed. He had vomited family thinks he might have vomited before but is hard to say and they are concerned he might of aspirated some of his vomit. The granddaughter was there around [place] o'clock and witnessed a fall when he was try to get on his slippers. Patient has not been verbal since then. In the ED he had a CT of the head and neck which were unremarkable per discussion with ED provider. Chest x-ray with bilateral infiltrates. BUN to creatinine ratio elevated at 28 and 1.1. Procalcitonin elevated at 12. Lactate within normal limits and pH of 7.5 with a CO2 of 27. Leukocytosis of 16. Systolic blood pressure low 100s. Afebrile. Patient complains of headache denies shortness of breath but admits to cough, he answers through nodding his head and mouths the answer on occasion. Does complain of increased back pain since the fall. He has a chronic cough its been worse lately per family. He has had diarrhea for several months. EKG normal sinus 1/6 Patient on home CPAP overnight. Now on 1 L nasal cannula. Leukocytosis similar. Pending sputum cultures. Follow-up chemistry and procalcitonin. X- rays of the lumbar and thoracic showed no acute fractures. Patient nods yes or no to questions but does not verbalize other than occasionally mumbling to answer question Review of Systems: denies headache/fever/chills/nausea/vomiting/chest or abdominal pain/diarrhea. Otherwise see above. Constitutional Vitals: Vital Signs Temp Pulse Resp BP Pulse Ox O2 Del Method O2 Flow Rate 97.8 F 83 18 106/72 97 2 06/10/22 17:31 06/10/22 23:48 06/10/22 23:48 06/10/22 23:48 06/10/22 23:48 06/10/22 20:18 06/10/22 20:18 Period Temp Pulse Resp BP Sys/Su Pulse Ox O2 Del Method O2 Flow Rate Last 24 Hr 97.8 F 79-90 14-28 92-162/49-139 86-100 Nasal Cannula-Room Air 2 Intake and Output 06/10/22 06/10/22 06/11/22 11:59 19:59 03:59 Intake Total 300 Output Total 450 Balance -150 Intake & Output: Intake & Output 06/10/22 06/10/22 06/11/22 11:59 19:59 03:59 Intake Total 300 Output Total 450 Balance -150 Intake: IV 300 Zithromax 500 mg In Dextrose 5% 250 in Water 250 ml @ 250 mls/hr IV ONCE ONE Rx#:[id number] Rocephin 2 gm In Dextrose 5% in 50 Water 50 ml @ 100 mls/hr IV ONCE ONE Rx#:[id number] Output: Void Amount 450 Other: Urine Color Yellow Exam: General: Awake, No acute Distress Eyes/N/T: EOMI, Head/Neck: neck supple, CV: RRR, No murmurs, Pulm: Rhonchi b/l, no wheezing todayl Abd: soft, nontender, +BS x4 Ext: no clubbing/cyanosis/edema Neuro: Alert, no focal deficits, moves all extremities, follows commands, sometimes mumbles in answer to questions but usually just nods head yes/no Skin: warm/dry OBJ DATA Labs CBC & Chem 7: 06/11/22 07:35 06/11/22 07:35 Labs: Abnormal Lab Results 06/10/22 06/10/22 06/10/22 20:34 17:58 17:55 WBC RBC Hgb Hct POC Hct 30.0 L Neut % (Auto) Lymph % (Auto) Lymph # (Auto) Immature Gran # Absolute Neutrophils POC VBG pH 7.53 H POC VBG pCO2 at Temp 27.7 L POC VBG HCO3 23.0 L POC VBG Total CO2 24.0 L POC Venous O2 Sat 78.0 H POC BUN 28 H POC Glucose 121 H Ammonia Procalcitonin 12.66 H 06/10/22 06/10/22 17:55 17:55 WBC 16.3 H RBC 2.96 L Hgb 9.4 L Hct 29.6 L POC Hct Neut % (Auto) 90.9 H Lymph % (Auto) 4.3 L Lymph # (Auto) 0.70 L Immature Gran # 0.06 H Absolute Neutrophils 14.87 H POC VBG pH POC VBG pCO2 at Temp POC VBG HCO3 POC VBG Total CO2 POC Venous O2 Sat POC BUN POC Glucose Ammonia 14 L Procalcitonin Meds: Medications Acetaminophen (Acetaminophen 325 Mg Tablet) 650 mg PO Q6HP PRN; Protocol PRN Reason: Per Pain Protocol/Fever > 101 Hydrocodone Bitart/Acetaminophen (Hydrocodone/Apap 5/325mg Tablet) 1 tab PO Q4HP PRN PRN Reason: PAIN LEVEL 3-6 Albuterol/Ipratropium (Ipratropium/Albuterol 3 Ml Ampul.Neb) 3 ml NEB Q4HP PRN PRN Reason: Shortness Of Breath Dextrose (Dextrose 50% 50 Ml Vial) 0 ml IV UD PRN PRN Reason: Per Sliding Scale Diagnostic Test (Pha) (Accu-Chek 1 Each Strip) 1 each FS ACHS CLIFF Diphenhydramine HCl (Diphenhydramine 25 Mg Capsule) 25 mg PO HSP PRN PRN Reason: Insomnia Last Admin: 06/11/22 00:31 Dose: 25 mg Enoxaparin Sodium (Enoxaparin 40 Mg/0.4 Ml Syringe) 40 mg SQ DAILY CLIFF Glucose (Dextrose 31 Gm Oral.Susp) 15 gm PO PRN PRN PRN Reason: Hypoglycemia Hydromorphone HCl (Hydromorphone 0.5 Mg/0.5 Ml Syringe) 0 mg IV Q2HP PRN PRN Reason: Pain Potassium Chloride 40 meq/ (Dextrose) 520 mls @ 130 mls/hr IV UD PRN PRN Reason: Potassium < 3 Magnesium Sulfate (Magnesium Sulfate) 2 gm in 50 mls @ 50 mls/hr IV UD PRN PRN Reason: Magnesium </= 1.6 Sodium Chloride (Sodium Chloride 0.9%) 1,000 mls @ 100 mls/hr IV .Q10H CLIFF Stop: 06/11/22 19:58 Last Admin: 06/11/22 00:32 Dose: 100 mls/hr Ceftriaxone Sodium 1 gm/ (Dextrose) 50 mls @ 100 mls/hr IV Q24H CLIFF; Protocol Last Admin: 06/11/22 00:39 Dose: Not Given Azithromycin 500 mg/ Dextrose 250 mls @ 250 mls/hr IV Q24H CLIFF; Protocol Stop: 06/13/22 00:58 Last Admin: 06/11/22 00:38 Dose: Not Given Metronidazole (Flagyl) 500 mg in 100 mls @ 100 mls/hr IV Q8H CLIFF; Protocol Last Admin: 06/11/22 00:47 Dose: 100 mls/hr Insulin Human Lispro (Insulin Lispro 1 Unit/0.01 Ml Unit) 0 unit SQ ACHS CLIFF; Protocol Melatonin (Melatonin 3 Mg Tablet) 3 mg PO QHS CLIFF Olanzapine (Olanzapine 5 Mg Tablet) 5 mg PO HS PRN PRN Reason: Agitation Ondansetron HCl (Ondansetron 4 Mg/2 Ml Vial) 4 mg IV Q4HP PRN PRN Reason: Nausea And Vomiting Polyethylene Glycol (Polyethylene Glycol 3350 17 Gm Packet) 17 gm PO DAILYP PRN PRN Reason: Constipation Potassium Chloride (Potassium Chloride 20 Meq Tablet) 40 meq PO UD PRN PRN Reason: Potssium is 3-3.5 Potassium Chloride (Potassium Chloride 20 Meq Tablet) 40 meq PO UD PRN PRN Reason: Potassium < 3 Senna (Sennosides 1 Tablet) 2 tab PO DAILYP PRN PRN Reason: Constipation Sodium Chloride (0.9 % Sodium Chloride 10 Ml Syringe) 10 ml IV Q8 CLIFF A/P Narrative A/P Narrative: A: *Acute hypoxic respiratory failure: 2/2 aspiration versus aspiration pneumonia -flu/rsv/covid neg -on 2L NC *Aspiration PNA: *Sepsis: -leukocytosis no change *Metabolic encephalopathy: *??Syncope: first fall unwitnessed, second fall nonsyncopal *Generalized weakness/deconditioning/falling/debility: Patient has been declining since last hospitalization per family *Dementia: *Volume depletion: improving *Pre-DM2: *CKD II: *Anemia, chronic, macrocytoic: check b12/folate *PREETHI on CPAP: *COPD (not on home O2): *HTN: *Depression: *Essential tremor: On propranolol *Hypothyroidism: *GERD: *Tobacco abuse: *Chronic back pain: on new fx's on xray P: -O2 supp, wean as able -abx, pending BC/SC -IS/Acapella, prn nebs, RT -IVF's -lumbar/thoracic xray -cpap qhs -Home medication reconciliation -Smoking cessation counseling -PT/OT -CM for placement needs -ppx: lovenox / home PPI Time Spent With Patient Time: Total time spent is greater than 50% in coordination of care (as documented) at patient's floor/unit and/or counseling patient: Total time spent with greater than 50% in coordination of care (as documented) at patient's floor/unit and/or counseling patient:: 35 - 50 minutes
[2022-06-11 01:27] LABS: Band Neutrophils % 9 % (0-10); Lymphocytes % 3 % (15-49); Monocytes % (Manual) 5 % (1-12); Platelet Estimate NORMAL (Normal); RBC Morphology NORMAL (Normal); Segmented Neutrophils % 83 % (38-78)
[2022-06-11 01:30] LABS: Appearance,Urine HAZY (Clear); Bilirubin,Urine Negative (Negative); Color,Urine YELLOW; Culture Indicated,Urine No; Glucose,Urine (UA) 50 mg/dL (Negative); Ketones,Urine Negative (Negative); Leukocyte Esterase,Urine Negative /uL (Negative); Mucus,Urine MOD /hpf; Nitrate,Urine Negative (Negative); Protein,Urine 30 mg/dL (Negative); Specific Gravity,Urine 1.024 (1.000-1.035); Urine Blood Negative (Negative); Urine Hyaline Cast 1 /lph (0-2); Urine RBC 2 /hpf (0-3); Urine Squamous Epithelial Cell < 1 /hpf (0-4); Urine WBC 2 /hpf (0-4); Urobilinogen,Urine Negative
[2022-06-11] MEDS: MELATONIN 3 MG TABLET PO SCH ×3 (01:40→20:34)
[2022-06-11] MEDS ORDERED: MELATONIN 3 MG TABLET PO ONE (01:40)
[2022-06-11 01:41] LABS: Hemoglobin A1C 4.9 % Hgb (4.0-6.0)
[2022-06-11] MEDS ORDERED: HYDROmorphone 1 MG/ML SYRINGE ONE (02:14)
[2022-06-11] MEDS: HYDROmorphone 0.5 MG/0.5 ML SYRINGE IV PRN ×3 (02:19→22:39)
[2022-06-11] MEDS ORDERED: HALOPERIDOL LACTATE 5 MG/ML VIAL IV PRN (02:35)
[2022-06-11] MEDS ORDERED: LORazepam 2 MG/ML VIAL IV PRN (02:37)
--- NOTE | 2022-06-11 03:21 | XRay Report ---
CLINICAL INFORMATION: Tachypnea COMPARISON: None. TECHNIQUE: Portable FINDINGS: The heart size, mediastinum and pulmonary vessels are unremarkable. Moderate vague patchy infiltrate is present in the right mid and lower lung. Possible developing infiltrate left midlung. There are no effusions. The bones and soft tissues are within normal limits. IMPRESSION: Moderate patchy right mid and lower lung infiltrate. Possible developing left midlung infiltrate Interpreted and Authenticated by: Arik Rogers 06/11/22
--- NOTE | 2022-06-11 03:31 | XRay Report ---
CLINICAL INFORMATION: Back pain-fall COMPARISON: Lumbar MRI 07/06/2018 FINDINGS: The lumbar spine is normal in curvature and alignment. L4-5 anterior/posterior fusion provided by left-sided pedicle screws and short body struts interbody graft.. There are no fractures or other osseous abnormalities. Mild L1-2, L2-3, L3-4 and moderate L5-S1 degenerative disease noted. Moderate degenerative facet disease present at L2-3 through L5-S1. SI joints are normal. Soft tissues are unremarkable. IMPRESSION: No fracture or posttraumatic change. Other chronic findings as as described Interpreted and Authenticated by: Arik Rogers 06/11/22
--- NOTE | 2022-06-11 03:33 | XRay Report ---
CLINICAL INFORMATION: Trauma-fall COMPARISON: Sagittal reformatted images of the thoracic spine from a chest CT 05/21/2020 FINDINGS: The thoracic spine is normal in curvature and alignment. Moderate degenerative disease is seen at each level as before. There are no fractures or other osseous abnormalities. Paraspinous soft tissues are normal. IMPRESSION: No fracture or posttraumatic change. Moderate degenerative disc disease at each level-no change Interpreted and Authenticated by: Arik Rogers 06/11/22
--- NOTE | 2022-06-11 03:43 | Cat Scan Report ---
CLINICAL INFORMATION: Trauma-fall COMPARISON: None. TECHNIQUE: 2.5 mm helical slices were obtained in the skull base to vertex. Following reconstruction, axial reformatted images were reviewed at bone and parenchymal windows. The exam was performed using radiation dose optimization techniques including, but not limited to, automated exposure control, adjustment of the mA and/or kV according to patient size and use of iterative reconstruction technique. FINDINGS: The ventricles, sulci, fissures, and cisterns are symmetrically enlarged compatible with mild age-related atrophy. No extra-axial fluid collections are identified. Mild patchy chronic ischemic changes, in the deep cerebral white matter, are expected for age. There is no hemorrhage, mass effect, or edema. Bone windows show no osseous abnormality. IMPRESSION: Mild atrophy and chronic ischemic changes in the deep cerebral white matter-expected for age. No acute findings Interpreted and Authenticated by: Arik Rogers 06/11/22
--- NOTE | 2022-06-11 04:18 | Cat Scan Report ---
CLINICAL INFORMATION: Trauma. History of prostate cancer COMPARISON: None. TECHNIQUE: 0.625 mm helical slices were obtained from the skull base through the superior T2 end plate. Following reconstruction, 2.5 mm sagittal, coronal and axial reformations , with and without disc space angling, were processed. The exam was reviewed at bone and soft tissue windows. The exam was performed using radiation dose optimization techniques including, but not limited to, automated exposure control, adjustment of the mA and/or kV according to patient size and use of iterative reconstruction technique. FINDINGS: Sagittal reformatted images show 3 mm of C7 anterior subluxation. The remaining cervical spine is anatomically aligned. Solid anterior C4-5 and C5-6 fusion provided by interbody grafts appreciated. At C6-7, there is also solid anterior fusion provided by interbody graft, anterior plate and screws. No fracture or other osseous abnormalities identified. The cervical cord is normal in contour and caliber without hemorrhage or other abnormality. No soft tissue abnormality. There is a mild patchy groundglass infiltrate in the right upper lobe. It is incompletely imaged. At C2-3, small broad disc protrusion mildly impinges the thecal sac At C3-4, small broad disc protrusion mildly impinges the anterior thecal sac. Moderate right facet arthropathy results in mild right IV foraminal narrowing At C4-5 fused level, there is mild marginal spurring resulting in mild thecal sac impingement. At C5-C6 fused level, there is mild broad marginal spurring resulting in mild central canal and left lateral recess narrowing At C6-7 fused level, moderate marginal spurring results in moderate central canal and severe bilateral IV foraminal narrowing. There is exiting C7 nerve root impingement At C7-T1, moderate broad disc protrusion and grade 1 spondylolisthesis results in severe bilateral IV foraminal narrowing. There is exiting C8 nerve root impingement. IMPRESSION: 1. No fracture or posttraumatic change. 2. Solid anterior C4-5, C5-6 and C6-7 fusion which are anatomically aligned. 3. Multi level degeneration resulting in central canal and IV foraminal narrowing with exiting nerve root impingement at the levels described. Please correlate with chronic or intermittent upper extremity radiculopathy 4. Mild patchy groundglass infiltrate in the right upper lobe-incompletely imaged Interpreted and Authenticated by: Arik Rogers 06/11/22
[2022-06-11] MEDS: 0.9 % SODIUM CHLORIDE 10 ML SYRINGE IV SCH ×3 (06:53→20:46)
[2022-06-11] MEDS: INSULIN LISPRO 1 UNIT/0.01 ML UNIT SQ SCH ×4 (07:36→20:33)
[2022-06-11 08:09] LABS: Basophils # (Auto) 0.07 K/mcL (0.00-0.30); Basophils % (Auto) 0.4 % (0.0-2.0); Eosinophils # (Auto) 0.23 K/mcL (0.00-0.70); Eosinophils % (Auto) 1.5 % (0.0-7.0); Hematocrit 31.1 % (40.1-51.0); Hemoglobin 9.7 g/dL (13.7-17.5); Lymphocytes # (Auto) 1.02 K/mcL (1.50-4.80); Lymphocytes % (Auto) 6.4 % (15.5-49.0); Mean Corpuscular HGB Conc 31.2 g/dL (31.0-36.0); Mean Platelet Volume 10.7 fL (8.8-12.5); Monocytes # (Auto) 0.67 K/mcL (0.10-0.90); Monocytes % (Auto) 4.2 % (1.0-12.0); Neutrophils % (Auto) 86.7 % (38.0-78.0); Platelet Count 168 K/mcL (140-440); RBC 3.02 M/mcL (4.63-6.08); Red Cell Distribution Width 13.1 % (11.5-14.5); WBC 15.9 K/mcL (4.5-11.0)
--- NOTE | 2022-06-11 08:23 | EKG ---
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
[2022-06-11 08:42] LABS: ALT/SGPT 15 U/L (<40); AST/SGOT 28 U/L (<40); Albumin 3.3 gm/dL (3.2-5.2); Albumin/Globulin Ratio 1.1 (1.0-2.3); Alkaline Phosphatase 66 U/L (39-117); Bilirubin,Direct < 0.2 mg/dL (0-0.3); Bilirubin,Total 0.2 mg/dL (0.1-1.0); Blood Urea Nitrogen 24 mg/dL (8-23); Calcium 8.4 mg/dL (8.6-10.4); Carbon Dioxide 28 mmol/L (22-30); Chloride 104 mmol/L (96-108); Globulin 2.9 gm/dL (2.2-3.7); Glomerular Filtration Rate 85; Glucose 82 mg/dL (70-105); Lactate Dehydrogenase 231 U/L (135-225); Triglycerides 89 mg/dL (<150); Uric Acid 4.4 mg/dL (2.5-8.0)
[2022-06-11] MEDS: cefTRIAXone 1 GM VIAL IV SCH (10:28)
[2022-06-11] MEDS: ENOXAPARIN 40 MG/0.4 ML SYRINGE SQ SCH (10:28)
[2022-06-11] MEDS ORDERED: HYDROcodone/APAP 10/325MG TABLET PO PRN (13:54)
[2022-06-11] MEDS ORDERED: NICOTINE POLACRILEX 2 MG GUM CHEW/PARK PRN (14:03)
[2022-06-11] MEDS: OXYBUTYNIN CHLORIDE 5 MG TABLET PO SCH ×2 (15:09→20:34)
[2022-06-11] MEDS: FLUTICASONE/SALMETEROL 250/50 INHALER #14 INH SCH (20:33)
[2022-06-11] MEDS: CARISOPRODOL 350 MG TABLET PO PRN (20:34)
[2022-06-11] MEDS: traZODone HCL 100 MG TABLET PO SCH (20:34)
[2022-06-11] MEDS ORDERED: GABAPENTIN 400 MG CAPSULE PO SCH (21:00)
[2022-06-11] MEDS: HYDROcodone/APAP 5/325MG TABLET PO PRN (21:34)
[2022-06-12] MEDS ORDERED: 0.9 % SODIUM CHLORIDE 1,000 ML IV SCH (01:00)
[2022-06-12] MEDS: metroNIDAZOLE 500 MG/100 ML BAG IV SCH ×3 (05:48→21:32)
[2022-06-12] MEDS: 0.9 % SODIUM CHLORIDE 10 ML SYRINGE IV SCH ×4 (05:49→23:00)
[2022-06-12 06:51] LABS: Basophils # (Auto) 0.05 K/mcL (0.00-0.30); Basophils % (Auto) 0.4 % (0.0-2.0); Eosinophils # (Auto) 0.11 K/mcL (0.00-0.70); Eosinophils % (Auto) 0.9 % (0.0-7.0); Hematocrit 28.5 % (40.1-51.0); Hemoglobin 8.8 g/dL (13.7-17.5); Mean Cell Volume 102.2 fL (80.0-100.0); Mean Corpuscular HGB Conc 30.9 g/dL (31.0-36.0); Mean Platelet Volume 11.4 fL (8.8-12.5); Monocytes # (Auto) 0.53 K/mcL (0.10-0.90); Monocytes % (Auto) 4.4 % (1.0-12.0); Neutrophils % (Auto) 88.4 % (38.0-78.0); Platelet Count 155 K/mcL (140-440); RBC 2.79 M/mcL (4.63-6.08); Red Cell Distribution Width 12.8 % (11.5-14.5); WBC 12.1 K/mcL (4.5-11.0)
[2022-06-12 07:22] LABS: ALT/SGPT 16 U/L (<40); AST/SGOT 28 U/L (<40); Albumin/Globulin Ratio 1.1 (1.0-2.3); Alkaline Phosphatase 68 U/L (39-117); Bilirubin,Direct < 0.2 mg/dL (0-0.3); Bilirubin,Total 0.3 mg/dL (0.1-1.0); Blood Urea Nitrogen 17 mg/dL (8-23); Calcium 8.6 mg/dL (8.6-10.4); Carbon Dioxide 24 mmol/L (22-30); Chloride 106 mmol/L (96-108); Globulin 2.7 gm/dL (2.2-3.7); Glomerular Filtration Rate 89; Glucose 77 mg/dL (70-105); Lactate Dehydrogenase 181 U/L (135-225); Triglycerides 83 mg/dL (<150); Uric Acid 3.9 mg/dL (2.5-8.0)
[2022-06-12] MEDS: INSULIN LISPRO 1 UNIT/0.01 ML UNIT SQ SCH ×4 (07:53→20:36)
--- NOTE | 2022-06-12 08:55 | Internal Med Progress Note ---
SUBJECTIVE Subjective Patient information: Note initiated : 06/12/22 at 8:49 am Service Date, if different from initiated Date: [] Patient: Tae Newell Sr a 71 y/o M admitted on 06/10/22 for Fall. Chief Complaint: [] Interval history: History of present illness: Mr. Reece Henderson is a 71 year old M Presents the ED for Fall confusion weakness. History is obtained from the family as the patient is unable to provide history. Patient lives by himself ambulates with a cane. [facility] for syncope felt possibly polypharmacy. [facility]. Per the family he was in the hospital few months ago although the time I was unable to clarify what hospital he was at and possibly the ER Remaining the [place] visit. Patient has not been doing that great since hospitalization. Studies been weak and talking less. Follows regularly. He fell this morning which was unwitnessed. He had vomited family thinks he might have vomited before but is hard to say and they are concerned he might of aspirated some of his vomit. The granddaughter was there around Nik o'clock and witnessed a fall when he was try to get on his slippers. Patient has not been verbal since then. In the ED he had a CT of the head and neck which were unremarkable per discussion with ED provider. Chest x-ray with bilateral infiltrates. BUN to creatinine ratio elevated at 28 and 1.1. Procalcitonin elevated at 12. Lactate within normal limits and pH of 7.5 with a CO2 of 27. Leukocytosis of 16. Systolic blood pressure low 100s. Afebrile. Patient complains of headache denies shortness of breath but admits to cough, he answers through nodding his head and mouths the answer on occasion. Does complain of increased back pain since the fall. He has a chronic cough its been worse lately per family. He has had diarrhea for several months. EKG normal sinus / Patient on home CPAP overnight. Now on 1 L nasal cannula. Leukocytosis similar. Pending sputum cultures. Follow-up chemistry and procalcitonin. X- rays of the lumbar and thoracic showed no acute fractures. Patient nods yes or no to questions but does not verbalize other than occasionally mumbling to answer question 1/ Patient more communicative today. Able to understand him more clearly today. Poor oral intake and encourage oral intake today. Leukocytosis improving. Anemia present. Procalcitonin now improving. Review of Systems: denies headache/fever/chills/nausea/vomiting/chest or abdominal pain/diarrhea. Otherwise see above. Constitutional Vitals: Vital Signs Temp Pulse Resp BP Pulse Ox O2 Del Method O2 Flow Rate 99.5 F H 91 H 19 99/55 91 4 06/12/22 08:01 06/12/22 08:01 06/12/22 08:01 06/12/22 08:01 06/12/22 08:01 06/12/22 08:01 06/12/22 07:28 Period Temp Pulse Resp BP Sys/Su Pulse Ox O2 Del Method O2 Flow Rate Last 24 Hr 98.1 F-99.5 F 73-94 12-26 91-131/55-81 80-96 CPAP-Nasal Cannula 2-4 Intake and Output 06/11/22 06/12/22 06/12/22 19:59 03:59 11:59 Intake Total 150 1100 100 Output Total 250 400 575 Balance -100 700 -475 Weight 69.218 kg 70.216 kg Intake & Output: Intake & Output 06/11/22 06/12/22 06/12/22 19:59 03:59 11:59 Intake Total 150 1100 100 Output Total 250 400 575 Balance -100 700 -475 Weight 69.218 kg 70.216 kg Intake: IV 100 1100 100 Sodium Chloride 0.9% 1,000 ml @ 1000 100 mls/hr IV .Q10H [facility] Rx#: [id number] Oral 50 Output: Urine Catheter Amount 250 400 300 Void Amount 275 Other: Meal Dinner Percent of Meal Consumed 0% Nourishment/Supplement name took 3/4 applesauce to take PO medications. Pt refused Ensure Enlive Urine Appearance Clear Clear Uretheral ([place]) Clear Clear Urine Color Yellow Light Mary Jo Uretheral ([place]) Dark Yellow Yellow Urine Odor Normal # Bowel Movements 0 # of times incontinent of 0 Bowels Exam: General: Awake, No acute Distress Eyes/N/T: EOMI, Head/Neck: neck supple, CV: RRR, No murmurs, Pulm: Rhonchi/rales b/l improving, no wheezing Abd: soft, nontender, +BS x4 Ext: no clubbing/cyanosis/edema Neuro: Alert, no focal deficits, moves all extremities, follows commands, speaking more today and more clearly Skin: warm/dry OBJ DATA Labs CBC & Chem 7: 06/12/22 05:30 06/12/22 05:30 Labs: Abnormal Lab Results 06/12/22 06/12/22 06/12/22 05:30 05:30 05:30 WBC 12.1 H RBC 2.79 L Hgb 8.8 L Hct 28.5 L POC Hct MCV 102.2 H MCHC 30.9 L Immature Gran % (Auto) 0.9 H Neut % (Auto) 88.4 H Lymph % (Auto) 5.0 L Lymph # (Auto) 0.60 L Seg Neutrophils % Lymphocytes % Immature Gran # 0.11 H Absolute Neutrophils 10.66 H POC VBG pH POC VBG pCO2 at Temp POC VBG HCO3 POC VBG Total CO2 POC Venous O2 Sat Anion Gap POC BUN BUN POC Glucose Calcium Phosphorus 2.0 L Ammonia Lactate Dehydrogenase Total Protein 5.7 L Albumin 3.0 L Procalcitonin 5.51 H Urine Appearance Urine Protein Urine Glucose (UA) Urine Mucus 06/11/22 06/11/22 06/11/22 19:10 07:35 07:35 WBC 15.9 H RBC 3.02 L Hgb 9.7 L Hct 31.1 L POC Hct MCV 103.0 H MCHC Immature Gran % (Auto) 0.8 H Neut % (Auto) 86.7 H Lymph % (Auto) 6.4 L Lymph # (Auto) 1.02 L Seg Neutrophils % Lymphocytes % Immature Gran # 0.13 H Absolute Neutrophils 13.73 H POC VBG pH POC VBG pCO2 at Temp POC VBG HCO3 POC VBG Total CO2 POC Venous O2 Sat Anion Gap 5.0 L POC BUN BUN 24 H POC Glucose Calcium 8.4 L Phosphorus Ammonia Lactate Dehydrogenase 231 H Total Protein Albumin Procalcitonin Urine Appearance Hazy A Urine Protein 30 A Urine Glucose (UA) 50 A Urine Mucus Mod A 06/10/22 06/10/22 06/10/22 20:34 17:58 17:55 WBC RBC Hgb Hct POC Hct 30.0 L MCV MCHC Immature Gran % (Auto) Neut % (Auto) Lymph % (Auto) Lymph # (Auto) Seg Neutrophils % Lymphocytes % Immature Gran # Absolute Neutrophils POC VBG pH 7.53 H POC VBG pCO2 at Temp 27.7 L POC VBG HCO3 23.0 L POC VBG Total CO2 24.0 L POC Venous O2 Sat 78.0 H Anion Gap POC BUN 28 H BUN POC Glucose 121 H Calcium Phosphorus Ammonia Lactate Dehydrogenase Total Protein Albumin Procalcitonin 12.66 H Urine Appearance Urine Protein Urine Glucose (UA) Urine Mucus 06/10/22 06/10/22 06/10/22 17:55 17:55 17:39 WBC 16.3 H RBC 2.96 L Hgb 9.4 L Hct 29.6 L POC Hct MCV MCHC Immature Gran % (Auto) Neut % (Auto) 90.9 H Lymph % (Auto) 4.3 L Lymph # (Auto) 0.70 L Seg Neutrophils % 83 H Lymphocytes % 3 L Immature Gran # 0.06 H Absolute Neutrophils 14.87 H POC VBG pH POC VBG pCO2 at Temp POC VBG HCO3 POC VBG Total CO2 POC Venous O2 Sat Anion Gap POC BUN BUN POC Glucose Calcium Phosphorus Ammonia 14 L Lactate Dehydrogenase Total Protein Albumin Procalcitonin Urine Appearance Urine Protein Urine Glucose (UA) Urine Mucus Meds: Medications Acetaminophen (Acetaminophen 325 Mg Tablet) 650 mg PO Q6HP PRN; Protocol PRN Reason: Per Pain Protocol/Fever > 101 Hydrocodone Bitart/Acetaminophen (Hydrocodone/Apap 5/325mg Tablet) 1 tab PO Q4HP PRN PRN Reason: PAIN LEVEL 3-6 Last Admin: 06/11/22 21:34 Dose: 1 tab Albuterol/Ipratropium (Ipratropium/Albuterol 3 Ml Ampul.Neb) 3 ml NEB Q4HP PRN PRN Reason: Shortness Of Breath Bupropion HCl (Bupropion 150 Mg Tab.Xl.24h) 300 mg PO DAILY [facility] Carisoprodol (Carisoprodol 350 Mg Tablet) 350 mg PO BIDP PRN PRN Reason: muscle pain Last Admin: 06/11/22 20:34 Dose: 350 mg Ceftriaxone Sodium (Ceftriaxone 1 Gm Vial) 1 gm IV Q24H [facility] Last Admin: 06/11/22 10:28 Dose: 1 gm Cyclobenzaprine HCl (Cyclobenzaprine 10 Mg Tablet) 10 mg PO TIDP PRN PRN Reason: Muscle Spasm Dextrose (Dextrose 50% 50 Ml Vial) 0 ml IV UD PRN PRN Reason: Per Sliding Scale Diagnostic Test (Pha) (Accu-Chek 1 Each Strip) 1 each FS ACHS [facility] Last Admin: 06/12/22 07:52 Dose: 1 each Diphenhydramine HCl (Diphenhydramine 25 Mg Capsule) 25 mg PO HSP PRN PRN Reason: Insomnia Last Admin: 06/11/22 00:31 Dose: 25 mg Enoxaparin Sodium (Enoxaparin 40 Mg/0.4 Ml Syringe) 40 mg SQ DAILY [facility] Last Admin: 06/11/22 10:28 Dose: 40 mg Gabapentin (Gabapentin 300 Mg Capsule) 600 mg PO DAILY [facility] Gabapentin (Gabapentin 400 Mg Capsule) 1,200 mg PO HS [facility] Last Admin: 06/11/22 20:34 Dose: 1,200 mg Glucose (Dextrose 31 Gm Oral.Susp) 15 gm PO PRN PRN PRN Reason: Hypoglycemia Haloperidol Lactate (Haloperidol Lactate 5 Mg/Ml Vial) 2 - 5 mg IV Q6HP PRN PRN Reason: Anxiety/Sedation/Agitation Hydromorphone HCl (Hydromorphone 0.5 Mg/0.5 Ml Syringe) 0 mg IV Q2HP PRN PRN Reason: Pain Last Admin: 06/11/22 22:39 Dose: 0.25 mg Potassium Chloride 40 meq/ (Dextrose) 520 mls @ 130 mls/hr IV UD PRN PRN Reason: Potassium < 3 Magnesium Sulfate (Magnesium Sulfate) 2 gm in 50 mls @ 50 mls/hr IV UD PRN PRN Reason: Magnesium </= 1.6 Azithromycin 500 mg/ Dextrose 250 mls @ 250 mls/hr IV Q24H [facility]; Protocol Stop: 06/13/22 00:58 Last Infusion: 06/11/22 11:58 Dose: Infused Metronidazole (Flagyl) 500 mg in 100 mls @ 100 mls/hr IV Q8H [facility]; Protocol Last Infusion: 06/12/22 07:15 Dose: Infused Sodium Chloride (Sodium Chloride 0.9%) 1,000 mls @ 75 mls/hr IV .[id number] [facility] Last Admin: 06/12/22 00:53 Dose: 75 mls/hr Insulin Human Lispro (Insulin Lispro 1 Unit/0.01 Ml Unit) 0 unit SQ ACHS [facility]; Protocol Last Admin: 06/12/22 07:53 Dose: Not Given Levothyroxine Sodium (Levothyroxine 100 Mcg Tablet) 200 mcg PO ACB [facility] Lorazepam (Lorazepam 2 Mg/Ml Vial) 0.5 mg IV Q4-6HP PRN PRN Reason: Anxiety/Sedation/Agitation Melatonin (Melatonin 3 Mg Tablet) 3 mg PO QHS [facility] Last Admin: 06/11/22 20:34 Dose: 3 mg Nicotine Polacrilex (Nicotine Polacrilex 2 Mg Gum) 2 mg CHEW/PARK Q4HP PRN PRN Reason: tobacco Olanzapine (Olanzapine 5 Mg Tablet) 5 mg PO HS PRN PRN Reason: Agitation Omeprazole (Omeprazole 20 Mg Capsule) 20 mg PO ACB [facility] Ondansetron HCl (Ondansetron 4 Mg/2 Ml Vial) 4 mg IV Q4HP PRN PRN Reason: Nausea And Vomiting Oxybutynin Chloride (Oxybutynin Chloride 5 Mg Tablet) 5 mg PO TID [facility] Last Admin: 06/11/22 20:34 Dose: 5 mg Polyethylene Glycol (Polyethylene Glycol 3350 17 Gm Packet) 17 gm PO DAILYP PRN PRN Reason: Constipation Potassium Chloride (Potassium Chloride 20 Meq Tablet) 40 meq PO UD PRN PRN Reason: Potssium is 3-3.5 Potassium Chloride (Potassium Chloride 20 Meq Tablet) 40 meq PO UD PRN PRN Reason: Potassium < 3 Prazosin HCl (Prazosin 1 Mg Capsule) 6 mg PO DAILY [facility] Propranolol HCl (Propranolol 60 Mg Cap.Xl.24h) 120 mg PO DAILY [facility] Fluticasone/Salmeterol (Fluticasone/Salmeterol 250/50 Inhaler #14) 1 puff INH BID [facility] Last Admin: 06/11/22 20:33 Dose: Not Given Senna (Sennosides 1 Tablet) 2 tab PO DAILYP PRN PRN Reason: Constipation Sertraline HCl (Sertraline 100 Mg Tablet) 300 mg PO QDAY [facility] Sodium Chloride (0.9 % Sodium Chloride 10 Ml Syringe) 10 ml IV Q8 [facility] Last Admin: 06/12/22 05:49 Dose: 10 ml Trazodone HCl (Trazodone Hcl 100 Mg Tablet) 100 mg PO QHS [facility] Last Admin: 06/11/22 20:34 Dose: 100 mg A/P Narrative A/P Narrative: A: *Acute hypoxic respiratory failure: 2/2 aspiration versus aspiration pneumonia -flu/rsv/covid neg -on 2-4L NC *Aspiration PNA: -elevated PCT *Sepsis: -leukocytosis now improving *Metabolic encephalopathy acute on chronic: improving *??Syncope: first fall unwitnessed, second fall nonsyncopal *Generalized weakness/deconditioning/falling/debility: Patient has been declining since last hospitalization per family *Dementia: *Volume depletion: improving *Pre-DM2: *CKD II: *Anemia, chronic, macrocytoic: b12/folate ok *PREETHI on CPAP: *COPD (not on home O2): *HTN: *Depression: *Essential tremor: On propranolol *Hypothyroidism: *GERD: *Tobacco abuse: *Chronic back pain: no new fx's on xray P: -O2 supp, wean as able -ST eval as per nurse pt having difficlt with this liquids -abx, pending BC/SC -IS/Acapella, prn nebs, RT -IVF's d/c -monitor UOP, i/o -cpap qhs -Smoking cessation counseling -PT/OT -CM for placement needs -ppx: lovenox / home PPI Time Spent With Patient Time: Total time spent is greater than 50% in coordination of care (as documented) at patient's floor/unit and/or counseling patient: Total time spent with greater than 50% in coordination of care (as documented) at patient's floor/unit and/or counseling patient:: 35 - 50 minutes QUALITY VTE Deep Vein Thrombosis/Pulmonary Embolism Present on Admission: No
[2022-06-12] MEDS ORDERED: PROPRANOLOL 60 MG CAP.XL.24H PO SCH (09:00)
[2022-06-12] MEDS ORDERED: GABAPENTIN 300 MG CAPSULE PO SCH ×2 (09:00→14:00)
[2022-06-12] MEDS ORDERED: PRAZOSIN 1 MG CAPSULE PO SCH (09:00)
[2022-06-12] MEDS: ENOXAPARIN 40 MG/0.4 ML SYRINGE SQ SCH (09:57)
[2022-06-12] MEDS: OXYBUTYNIN CHLORIDE 5 MG TABLET PO SCH ×3 (09:57→20:31)
[2022-06-12] MEDS: OMEPRAZOLE 20 MG CAPSULE PO SCH (09:57)
[2022-06-12] MEDS: buPROPion 150 MG TAB.XL.24H PO SCH (09:57)
[2022-06-12] MEDS: FLUTICASONE/SALMETEROL 250/50 INHALER #14 INH SCH ×2 (10:14→20:32)
[2022-06-12] MEDS: AZITHROMYCIN 500 MG in DEXTROSE 5% IN WATER 250 ML IV SCH (10:14)
[2022-06-12] MEDS: LEVOTHYROXINE 100 MCG TABLET PO SCH (10:19)
[2022-06-12] MEDS: cefTRIAXone 1 GM VIAL IV SCH (10:20)
[2022-06-12] MEDS: SERTRALINE 100 MG TABLET PO SCH (10:20)
[2022-06-12] MEDS: PRAZOSIN 1 MG CAPSULE PO SCH (10:26)
[2022-06-12] MEDS: HYDROcodone/APAP 5/325MG TABLET PO PRN ×2 (10:32→19:38)
[2022-06-12] MEDS: CYCLOBENZAPRINE 10 MG TABLET PO PRN (19:40)
[2022-06-12] MEDS: GABAPENTIN 300 MG CAPSULE PO SCH (20:30)
[2022-06-12] MEDS: MELATONIN 3 MG TABLET PO SCH (20:31)
[2022-06-12] MEDS: traZODone HCL 100 MG TABLET PO SCH (20:31)
[2022-06-13] MEDS: metroNIDAZOLE 500 MG/100 ML BAG IV SCH ×3 (05:35→21:22)
[2022-06-13] MEDS: 0.9 % SODIUM CHLORIDE 10 ML SYRINGE IV SCH ×3 (05:36→21:23)
--- NOTE | 2022-06-13 05:56 | Magnetic Resonance Report ---
CLINICAL INFORMATION: Altered mental status and history of trauma COMPARISON: None. TECHNIQUE:Sagittal T1 FLAIR, axial T2 FLAIR propeller, diffusion, and ADC were acquired. FINDINGS: The ventricles, sulci, fissures and cisterns are symmetrically enlarged bowel mild age-related atrophy. No extra-axial fluid collections or mass are appreciated. Scattered chronic senescent ischemic foci throughout the cerebral white matter are expected for age. There is also hemorrhage mass effect or edema or restricted diffusion to suggest acute infarct. the signal void in intracerebral arteries, extra-axial cranial nerves, pituitary, orbits and paranasal sinuses are all normal. IMPRESSION: Mild atrophy and scattered chronic senescent ischemic foci in the deep cerebral white matter expected for age. No evidence of acute infarct, hemorrhage or additional intracerebral pathology Interpreted and Authenticated by: Arik Rogers 06/13/22
[2022-06-13] MEDS: INSULIN LISPRO 1 UNIT/0.01 ML UNIT SQ SCH ×4 (07:43→21:18)
[2022-06-13] MEDS: ACETAMINOPHEN 325 MG TABLET PO PRN (07:53)
[2022-06-13] MEDS: OMEPRAZOLE 20 MG CAPSULE PO SCH (07:53)
[2022-06-13] MEDS: LEVOTHYROXINE 100 MCG TABLET PO SCH (07:53)
[2022-06-13] MEDS: PRAZOSIN 1 MG CAPSULE PO SCH (08:10)
[2022-06-13] MEDS: PROPRANOLOL 60 MG CAP.XL.24H PO SCH (08:10)
[2022-06-13] MEDS: OXYBUTYNIN CHLORIDE 5 MG TABLET PO SCH ×3 (08:10→19:55)
[2022-06-13] MEDS: SERTRALINE 100 MG TABLET PO SCH (08:10)
[2022-06-13] MEDS: ENOXAPARIN 40 MG/0.4 ML SYRINGE SQ SCH (08:10)
[2022-06-13] MEDS: buPROPion 150 MG TAB.XL.24H PO SCH (08:10)
[2022-06-13] MEDS: FLUTICASONE/SALMETEROL 250/50 INHALER #14 INH SCH ×2 (08:11→21:22)
[2022-06-13] MEDS ORDERED: PHOSPHORUS 250 MG TABLET PO SCH (08:21)
--- NOTE | 2022-06-13 08:23 | Internal Med Progress Note ---
SUBJECTIVE Subjective Patient information: Note initiated : 06/13/22 at 8:15 am Service Date, if different from initiated Date: [] Patient: Tae Newell Sr a 71 y/o M admitted on 06/10/22 for Fall. Chief Complaint: [] Interval history: History of present illness: Mr. Reece Henderson is a 71 year old M Presents the ED for Fall confusion weakness. History is obtained from the family as the patient is unable to provide history. Patient lives by himself ambulates with a cane. [place] for syncope felt possibly polypharmacy. [facility]. Per the family he was in the hospital few months ago although the time I was unable to clarify what hospital he was at and possibly the ER Remaining the [place] visit. Patient has not been doing that great since hospitalization. Studies been weak and talking less. Follows regularly. He fell this morning which was unwitnessed. He had vomited family thinks he might have vomited before but is hard to say and they are concerned he might of aspirated some of his vomit. The granddaughter was there around Nik o'clock and witnessed a fall when he was try to get on his slippers. Patient has not been verbal since then. In the ED he had a CT of the head and neck which were unremarkable per discussion with ED provider. Chest x-ray with bilateral infiltrates. BUN to creatinine ratio elevated at 28 and 1.1. Procalcitonin elevated at 12. Lactate within normal limits and pH of 7.5 with a CO2 of 27. Leukocytosis of 16. Systolic blood pressure low 100s. Afebrile. Patient complains of headache denies shortness of breath but admits to cough, he answers through nodding his head and mouths the answer on occasion. Does complain of increased back pain since the fall. He has a chronic cough its been worse lately per family. He has had diarrhea for several months. EKG normal sinus / Patient on home CPAP overnight. Now on 1 L nasal cannula. Leukocytosis similar. Pending sputum cultures. Follow-up chemistry and procalcitonin. X- rays of the lumbar and thoracic showed no acute fractures. Patient nods yes or no to questions but does not verbalize other than occasionally mumbling to answer question 1/ Patient more communicative today. Able to understand him more clearly today. Poor oral intake and encourage oral intake today. Leukocytosis improving. Anemia present. Procalcitonin now improving. 06/13 Family at bedside. Patient mentation waxes and wanes. He is interactive and follows commands. Answers questions although sometimes difficult to understand. Confusion at times. Family states that since he was hospitalized in October at [facility] he has been gradually declining as far as physical activity and mental capacity which has been waxing and waning. MRI brain no acute pathology but atrophy and chronic ischemic changes. Chest x-ray concerning for aspiration. I explained to the family that given his decline over the past 7 months and is likely aspiration at this is likely to recur and is likely to continue to decline, he seemed understand. The [id number] and granddaughter were in the room. Review of Systems: denies headache/fever/chills/nausea/vomiting/chest or abdominal pain/diarrhea. Otherwise see above. Constitutional Vitals: Vital Signs Temp Pulse Resp BP Pulse Ox O2 Del Method O2 Flow Rate 99.4 F H 89 21 127/62 93 2 06/13/22 04:01 06/13/22 06:01 06/13/22 06:01 06/13/22 06:01 06/13/22 06:01 06/13/22 04:01 06/13/22 04:01 Period Temp Pulse Resp BP Sys/Su Pulse Ox O2 Del Method O2 Flow Rate Last 24 Hr 97.2 F-99.5 F 68-100 17-91 104-135/50-105 2-96 Nasal Cannula- Nasal Cannula 2-2 Intake and Output 06/12/22 06/13/22 06/13/22 19:59 03:59 11:59 Intake Total 590 1100 100 Output Total 375 350 150 Balance 215 750 -50 Weight 70.08 kg Intake & Output: Intake & Output 06/12/22 06/13/22 06/13/22 19:59 03:59 11:59 Intake Total 590 1100 100 Output Total 375 350 150 Balance 215 750 -50 Weight 70.08 kg Intake: Nourishment/Supplement quantity 240 (ml) IV 350 1100 100 Sodium Chloride 0.9% 1,000 ml @ 1000 75 mls/hr IV .[id number] [facility] Rx#: [id number] Zithromax 500 mg In Dextrose 5% 250 in Water 250 ml @ 250 mls/hr IV Q24H [facility] Rx#:[id number] Oral 0 0 Output: Urine Catheter Amount 375 350 150 Other: Meal Dinner Percent of Meal Consumed 25% Feeding Ability Total Assistance Nourishment/Supplement name ensure Urine Appearance Clear Clear Clear Uretheral (Hodges) Clear Urine Color Dark Yellow Dark Yellow Yellow Brown Uretheral (Hodges) Dark Mary Jo Urine Odor Normal Normal Normal Exam: General: Awake, No acute Distress Eyes/N/T: EOMI, Head/Neck: neck supple, CV: RRR, No murmurs, Pulm: Rhonchi/rales b/l improving R>L, no wheezing Abd: soft, nontender, +BS x4 Ext: no clubbing/cyanosis/edema Neuro: Alert, no focal deficits, moves all extremities, follows commands, speaking more today and more clearly Skin: warm/dry OBJ DATA Labs CBC & Chem 7: 06/12/22 05:30 06/12/22 05:30 Labs: Abnormal Lab Results 06/12/22 06/12/22 06/12/22 05:30 05:30 05:30 WBC 12.1 H RBC 2.79 L Hgb 8.8 L Hct 28.5 L POC Hct MCV 102.2 H MCHC 30.9 L Immature Gran % (Auto) 0.9 H Neut % (Auto) 88.4 H Lymph % (Auto) 5.0 L Lymph # (Auto) 0.60 L Seg Neutrophils % Lymphocytes % Immature Gran # 0.11 H Absolute Neutrophils 10.66 H POC VBG pH POC VBG pCO2 at Temp POC VBG HCO3 POC VBG Total CO2 POC Venous O2 Sat Anion Gap POC BUN BUN POC Glucose Calcium Phosphorus 2.0 L Ammonia Lactate Dehydrogenase Total Protein 5.7 L Albumin 3.0 L Procalcitonin 5.51 H Urine Appearance Urine Protein Urine Glucose (UA) Urine Mucus 06/11/22 06/11/22 06/11/22 19:10 07:35 07:35 WBC 15.9 H RBC 3.02 L Hgb 9.7 L Hct 31.1 L POC Hct MCV 103.0 H MCHC Immature Gran % (Auto) 0.8 H Neut % (Auto) 86.7 H Lymph % (Auto) 6.4 L Lymph # (Auto) 1.02 L Seg Neutrophils % Lymphocytes % Immature Gran # 0.13 H Absolute Neutrophils 13.73 H POC VBG pH POC VBG pCO2 at Temp POC VBG HCO3 POC VBG Total CO2 POC Venous O2 Sat Anion Gap 5.0 L POC BUN BUN 24 H POC Glucose Calcium 8.4 L Phosphorus Ammonia Lactate Dehydrogenase 231 H Total Protein Albumin Procalcitonin Urine Appearance Hazy A Urine Protein 30 A Urine Glucose (UA) 50 A Urine Mucus Mod A 06/10/22 06/10/22 06/10/22 20:34 17:58 17:55 WBC RBC Hgb Hct POC Hct 30.0 L MCV MCHC Immature Gran % (Auto) Neut % (Auto) Lymph % (Auto) Lymph # (Auto) Seg Neutrophils % Lymphocytes % Immature Gran # Absolute Neutrophils POC VBG pH 7.53 H POC VBG pCO2 at Temp 27.7 L POC VBG HCO3 23.0 L POC VBG Total CO2 24.0 L POC Venous O2 Sat 78.0 H Anion Gap POC BUN 28 H BUN POC Glucose 121 H Calcium Phosphorus Ammonia Lactate Dehydrogenase Total Protein Albumin Procalcitonin 12.66 H Urine Appearance Urine Protein Urine Glucose (UA) Urine Mucus 06/10/22 06/10/22 06/10/22 17:55 17:55 17:39 WBC 16.3 H RBC 2.96 L Hgb 9.4 L Hct 29.6 L POC Hct MCV MCHC Immature Gran % (Auto) Neut % (Auto) 90.9 H Lymph % (Auto) 4.3 L Lymph # (Auto) 0.70 L Seg Neutrophils % 83 H Lymphocytes % 3 L Immature Gran # 0.06 H Absolute Neutrophils 14.87 H POC VBG pH POC VBG pCO2 at Temp POC VBG HCO3 POC VBG Total CO2 POC Venous O2 Sat Anion Gap POC BUN BUN POC Glucose Calcium Phosphorus Ammonia 14 L Lactate Dehydrogenase Total Protein Albumin Procalcitonin Urine Appearance Urine Protein Urine Glucose (UA) Urine Mucus Meds: Medications Acetaminophen (Acetaminophen 325 Mg Tablet) 650 mg PO Q6HP PRN; Protocol PRN Reason: Per Pain Protocol/Fever > 101 Last Admin: 06/13/22 07:53 Dose: 650 mg Hydrocodone Bitart/Acetaminophen (Hydrocodone/Apap 5/325mg Tablet) 1 tab PO Q6HP PRN PRN Reason: PAIN LEVEL 3-6 Last Admin: 06/12/22 19:38 Dose: 1 tab Albuterol/Ipratropium (Ipratropium/Albuterol 3 Ml Ampul.Neb) 3 ml NEB Q4HP PRN PRN Reason: Shortness Of Breath Bupropion HCl (Bupropion 150 Mg Tab.Xl.24h) 300 mg PO DAILY [facility] Last Admin: 06/13/22 08:10 Dose: 300 mg Carisoprodol (Carisoprodol 350 Mg Tablet) 350 mg PO BIDP PRN PRN Reason: muscle pain Last Admin: 06/11/22 20:34 Dose: 350 mg Ceftriaxone Sodium (Ceftriaxone 1 Gm Vial) 1 gm IV Q24H [facility] Last Admin: 06/12/22 10:20 Dose: 1 gm Cyclobenzaprine HCl (Cyclobenzaprine 10 Mg Tablet) 10 mg PO TIDP PRN PRN Reason: Muscle Spasm Last Admin: 06/12/22 19:40 Dose: 10 mg Dextrose (Dextrose 50% 50 Ml Vial) 0 ml IV UD PRN PRN Reason: Per Sliding Scale Diagnostic Test (Pha) (Accu-Chek 1 Each Strip) 1 each FS ACHS [facility] Last Admin: 06/13/22 07:43 Dose: 1 each Diphenhydramine HCl (Diphenhydramine 25 Mg Capsule) 25 mg PO HSP PRN PRN Reason: Insomnia Last Admin: 06/11/22 00:31 Dose: 25 mg Enoxaparin Sodium (Enoxaparin 40 Mg/0.4 Ml Syringe) 40 mg SQ DAILY [facility] Last Admin: 06/13/22 08:10 Dose: 40 mg Gabapentin (Gabapentin 300 Mg Capsule) 600 mg PO HS [facility] Last Admin: 06/12/22 20:30 Dose: 600 mg Glucose (Dextrose 31 Gm Oral.Susp) 15 gm PO PRN PRN PRN Reason: Hypoglycemia Haloperidol Lactate (Haloperidol Lactate 5 Mg/Ml Vial) 2 - 5 mg IV Q6HP PRN PRN Reason: Anxiety/Sedation/Agitation Potassium Chloride 40 meq/ (Dextrose) 520 mls @ 130 mls/hr IV UD PRN PRN Reason: Potassium < 3 Magnesium Sulfate (Magnesium Sulfate) 2 gm in 50 mls @ 50 mls/hr IV UD PRN PRN Reason: Magnesium </= 1.6 Metronidazole (Flagyl) 500 mg in 100 mls @ 100 mls/hr IV Q8H [facility]; Protocol Last Infusion: 06/13/22 06:40 Dose: Infused Insulin Human Lispro (Insulin Lispro 1 Unit/0.01 Ml Unit) 0 unit SQ [facility]; Protocol Last Admin: 06/13/22 07:43 Dose: Not Given Levothyroxine Sodium (Levothyroxine 100 Mcg Tablet) 200 mcg PO ACB [facility] Last Admin: 06/13/22 07:53 Dose: 200 mcg Melatonin (Melatonin 3 Mg Tablet) 3 mg PO QHS [facility] Last Admin: 06/12/22 20:31 Dose: 3 mg Nicotine Polacrilex (Nicotine Polacrilex 2 Mg Gum) 2 mg CHEW/PARK Q4HP PRN PRN Reason: tobacco Olanzapine (Olanzapine 5 Mg Tablet) 5 mg PO HS PRN PRN Reason: Agitation Omeprazole (Omeprazole 20 Mg Capsule) 20 mg PO ACB [facility] Last Admin: 06/13/22 07:53 Dose: 20 mg Ondansetron HCl (Ondansetron 4 Mg/2 Ml Vial) 4 mg IV Q4HP PRN PRN Reason: Nausea And Vomiting Oxybutynin Chloride (Oxybutynin Chloride 5 Mg Tablet) 5 mg PO TID [facility] Last Admin: 06/13/22 08:10 Dose: 5 mg Polyethylene Glycol (Polyethylene Glycol 3350 17 Gm Packet) 17 gm PO DAILYP PRN PRN Reason: Constipation Potassium Chloride (Potassium Chloride 20 Meq Tablet) 40 meq PO UD PRN PRN Reason: Potssium is 3-3.5 Potassium Chloride (Potassium Chloride 20 Meq Tablet) 40 meq PO UD PRN PRN Reason: Potassium < 3 Prazosin HCl (Prazosin 1 Mg Capsule) 3 mg PO DAILY [facility] Last Admin: 06/13/22 08:10 Dose: 3 mg Propranolol HCl (Propranolol 60 Mg Cap.Xl.24h) 60 mg PO DAILY [facility] Last Admin: 06/13/22 08:10 Dose: 60 mg Fluticasone/Salmeterol (Fluticasone/Salmeterol 250/50 Inhaler #14) 1 puff INH BID [facility] Last Admin: 06/13/22 08:11 Dose: Not Given Senna (Sennosides 1 Tablet) 2 tab PO DAILYP PRN PRN Reason: Constipation Sertraline HCl (Sertraline 100 Mg Tablet) 300 mg PO QDAY [facility] Last Admin: 06/13/22 08:10 Dose: 300 mg Sodium Chloride (0.9 % Sodium Chloride 10 Ml Syringe) 10 ml IV Q8 [facility] Last Admin: 06/13/22 05:36 Dose: 10 ml Trazodone HCl (Trazodone Hcl 100 Mg Tablet) 100 mg PO QHS [facility] Last Admin: 06/12/22 20:31 Dose: 100 mg A/P Narrative A/P Narrative: A: *Acute hypoxic respiratory failure: 2/2 aspiration pneumonia -flu/rsv/covid neg -on 2L NC *Aspiration PNA: -elevated PCT but improving *Oropharyngeal Dysphagia, moderate: *Sepsis: -leukocytosis improving *Metabolic encephalopathy acute on chronic: improving -mRI brain with atrophy and chronic ischemic changes, no acute pathology *Dementia: *??Syncope: first fall unwitnessed, second fall nonsyncopal *Generalized weakness/deconditioning/falling/debility: -Patient has been declining since last hospitalization per family @[facility] *Volume depletion: improving *Hypophosphatemia: Replace *Pre-DM2: *CKD II: *Anemia, chronic, macrocytoic: b12/folate ok *PREETHI on CPAP: *COPD (not on home O2): *HTN: *Depression: *Essential tremor: On propranolol *Hypothyroidism: *GERD: *Tobacco abuse: *Chronic back pain: no new fx's on xray P: -O2 supp, wean as able -abx, pending BC/SC -IS/Acapella, prn nebs, RT -f/u CXR -monitor UOP, i/o -Monitor and replace electrolytes -cpap qhs -Smoking cessation counseling -PT/OT -CM for placement needs -ppx: lovenox / home PPI Time Spent With Patient Time: Total time spent is greater than 50% in coordination of care (as documented) at patient's floor/unit and/or counseling patient: Total time spent with greater than 50% in coordination of care (as documented) at patient's floor/unit and/or counseling patient:: 35 - 50 minutes QUALITY VTE Deep Vein Thrombosis/Pulmonary Embolism Present on Admission: No
[2022-06-13] MEDS: cefTRIAXone 1 GM VIAL IV SCH (08:32)
--- NOTE | 2022-06-13 08:39 | XRay Report ---
CLINICAL INFORMATION: Follow-up infiltrates COMPARISON: 06/10/2022 TECHNIQUE: Portable FINDINGS: The heart size, mediastinum and pulmonary vessels are unremarkable. Moderate patchy infiltrates in both mid and lower lungs appreciated. There is slight worsening in the right lower lung since yesterday.. There are no effusions. The bones and soft tissues are within normal limits. IMPRESSION: Bilateral mid and lower lung infiltrates with slight worsening right lower lung since yesterday. Suspect aspiration Interpreted and Authenticated by: Arik Rogers 06/13/22
[2022-06-13 10:17] LABS: Basophils # (Auto) 0.03 K/mcL (0.00-0.30); Basophils % (Auto) 0.3 % (0.0-2.0); Eosinophils # (Auto) 0.08 K/mcL (0.00-0.70); Eosinophils % (Auto) 0.8 % (0.0-7.0); Hematocrit 24.3 % (40.1-51.0); Hemoglobin 7.8 g/dL (13.7-17.5); Lymphocytes # (Auto) 0.46 K/mcL (1.50-4.80); Lymphocytes % (Auto) 4.7 % (15.5-49.0); Mean Cell Volume 98.4 fL (80.0-100.0); Mean Corpuscular HGB Conc 32.1 g/dL (31.0-36.0); Monocytes # (Auto) 0.37 K/mcL (0.10-0.90); Monocytes % (Auto) 3.7 % (1.0-12.0); Neutrophils % (Auto) 88.8 % (38.0-78.0); Platelet Count 166 K/mcL (140-440); RBC 2.47 M/mcL (4.63-6.08); Red Cell Distribution Width 12.4 % (11.5-14.5); WBC 9.9 K/mcL (4.5-11.0)
[2022-06-13 10:39] LABS: ALT/SGPT 13 U/L (<40); AST/SGOT 17 U/L (<40); Albumin 2.6 gm/dL (3.2-5.2); Albumin/Globulin Ratio 0.9 (1.0-2.3); Alkaline Phosphatase 57 U/L (39-117); Bilirubin,Direct < 0.2 mg/dL (0-0.3); Bilirubin,Total 0.2 mg/dL (0.1-1.0); Blood Urea Nitrogen 14 mg/dL (8-23); Calcium 8.4 mg/dL (8.6-10.4); Carbon Dioxide 23 mmol/L (22-30); Chloride 103 mmol/L (96-108); Globulin 2.9 gm/dL (2.2-3.7); Glomerular Filtration Rate 89; Glucose 138 mg/dL (70-105); Lactate Dehydrogenase 176 U/L (135-225); Phosphorous 1.7 mg/dL (2.5-4.5); Triglycerides 76 mg/dL (<150); Uric Acid 3.9 mg/dL (2.5-8.0)
[2022-06-13] MEDS: NEUTRA PHOS 1 PACKET PO SCH ×2 (11:34→19:56)
[2022-06-13] MEDS ORDERED: NEUTRA PHOS 1 PACKET PO SCH (12:00)
[2022-06-13] MEDS: CYCLOBENZAPRINE 10 MG TABLET PO PRN (19:26)
[2022-06-13] MEDS: HYDROcodone/APAP 5/325MG TABLET PO PRN (19:54)
[2022-06-13] MEDS: traZODone HCL 100 MG TABLET PO SCH (19:55)
[2022-06-13] MEDS: MELATONIN 3 MG TABLET PO SCH (19:55)
[2022-06-13] MEDS: GABAPENTIN 300 MG CAPSULE PO SCH (19:55)
[2022-06-13] MEDS: PHOSPHORUS 250 MG TABLET PO SCH (19:55)
[2022-06-13] MEDS: diphenhydrAMINE 25 MG CAPSULE PO PRN (20:23)
[2022-06-13] MEDS: CARISOPRODOL 350 MG TABLET PO PRN (21:11)
[2022-06-14] MEDS: 0.9 % SODIUM CHLORIDE 10 ML SYRINGE IV SCH ×3 (05:45→20:35)
[2022-06-14] MEDS: metroNIDAZOLE 500 MG/100 ML BAG IV SCH ×3 (05:46→20:59)
[2022-06-14 06:28] LABS: Hematocrit 28.5 % (40.1-51.0); Hemoglobin 9.1 g/dL (13.7-17.5)
[2022-06-14] MEDS: INSULIN LISPRO 1 UNIT/0.01 ML UNIT SQ SCH ×4 (07:51→21:52)
[2022-06-14] MEDS: FLUTICASONE/SALMETEROL 250/50 INHALER #14 INH SCH ×2 (08:34→20:32)
[2022-06-14] MEDS: LEVOTHYROXINE 100 MCG TABLET PO SCH (08:34)
[2022-06-14] MEDS: OMEPRAZOLE 20 MG CAPSULE PO SCH (08:34)
[2022-06-14] MEDS: ENOXAPARIN 40 MG/0.4 ML SYRINGE SQ SCH (08:34)
[2022-06-14] MEDS: PRAZOSIN 1 MG CAPSULE PO SCH (08:35)
[2022-06-14] MEDS: OXYBUTYNIN CHLORIDE 5 MG TABLET PO SCH ×3 (08:35→20:31)
[2022-06-14] MEDS: PHOSPHORUS 250 MG TABLET PO SCH (08:35)
[2022-06-14] MEDS: SERTRALINE 100 MG TABLET PO SCH (08:35)
[2022-06-14] MEDS: PROPRANOLOL 60 MG CAP.XL.24H PO SCH (08:35)
[2022-06-14] MEDS: buPROPion 150 MG TAB.XL.24H PO SCH (08:35)
[2022-06-14] MEDS: cefTRIAXone 1 GM VIAL IV SCH (08:52)
--- NOTE | 2022-06-14 10:58 | Internal Med Progress Note ---
SUBJECTIVE Subjective Patient information: Note initiated : 06/14/22 at 10:56 am Service Date, if different from initiated Date: [] Patient: Tae Newell Sr 71 y/o M admitted on 06/10/22 for Fall. Chief Complaint: [Fall, AMS, failure to thrive] Principal diagnosis: Aspiration pneumonia, encephalopathy Constitutional Vitals: Vital Signs Temp Pulse Resp BP Pulse Ox O2 Del Method O2 Flow Rate 98.5 F 87 23 H 108/73 90 1 06/14/22 08:01 06/14/22 10:05 06/14/22 10:05 06/14/22 10:05 06/14/22 10:05 06/14/22 10:05 06/14/22 10:05 Period Temp Pulse Resp BP Sys/Su Pulse Ox O2 Del Method O2 Flow Rate Last 24 Hr 98.1 F-99.1 F 71-97 16-30 108-147/47-87 88-98 Nasal Cannula- Room Air, Nasal Cannula 0-1 Intake and Output 06/13/22 06/14/22 06/14/22 19:59 03:59 11:59 Intake Total 160 100 100 Output Total 125 350 100 Balance 35 -250 0 Weight 69.899 kg Intake & Output: Intake & Output 06/13/22 06/14/22 06/14/22 19:59 03:59 11:59 Intake Total 160 100 100 Output Total 125 350 100 Balance 35 -250 0 Weight 69.899 kg Intake: Nourishment/Supplement quantity 60 (ml) IV 100 100 100 Output: Urine Catheter Amount 125 350 100 Other: Meal Lunch Percent of Meal Consumed 50% Feeding Ability Total Assistance Nourishment/Supplement name ensure Urine Appearance Clear Clear Uretheral ([place]odges) Clear Clear Clear Urine Color Dark Mary Jo Dark Mary Jo Dark Mary Jo Uretheral (Hodges) Dark Mary Jo Dark Mary Jo Dark Yellow Urine Odor Strong Stool Color Brown Green Stool Consistency Dry and Hard Loose # Bowel Movements 0 Head Head exam: Present atraumatic and normal inspection Eye Eye exam: Present normal appearance ENT ENT exam: Present mucous membranes moist, normal exam and normal external ear exam Neck Neck exam: Present normal inspection Respiratory Respiratory exam: Present normal respiratory exam Cardiovascular Cardiovascular exam: Present normal rate and rhythm GI/Abdominal GI/Abdominal exam: Present normal bowel sounds Back Exam Back exam: Present normal inspection Neurological Exam Neurological exam: Present alert and altered; Absent oriented X3 Skin Skin exam: Present intact and warm OBJ DATA Labs CBC & Chem 7: 06/14/22 05:50 06/13/22 09:47 Labs: Abnormal Lab Results 06/14/22 06/13/22 06/13/22 05:50 09:47 09:47 WBC RBC 2.47 L Hgb 9.1 L 7.8 L Hct 28.5 L 24.3 L MCV MCHC Immature Gran % (Auto) 1.7 H Neut % (Auto) 88.8 H Lymph % (Auto) 4.7 L Lymph # (Auto) 0.46 L Immature Gran # 0.17 H Absolute Neutrophils 8.77 H Glucose 138 H Calcium 8.4 L Phosphorus 1.7 L Total Protein 5.5 L Albumin 2.6 L Albumin/Globulin Ratio 0.9 L Procalcitonin 06/12/22 06/12/22 06/12/22 05:30 05:30 05:30 WBC 12.1 H RBC 2.79 L Hgb 8.8 L Hct 28.5 L MCV 102.2 H MCHC 30.9 L Immature Gran % (Auto) 0.9 H Neut % (Auto) 88.4 H Lymph % (Auto) 5.0 L Lymph # (Auto) 0.60 L Immature Gran # 0.11 H Absolute Neutrophils 10.66 H Glucose Calcium Phosphorus 2.0 L Total Protein 5.7 L Albumin 3.0 L Albumin/Globulin Ratio Procalcitonin 5.51 H Meds: Medications Acetaminophen (Acetaminophen 325 Mg Tablet) 650 mg PO Q6HP PRN; Protocol PRN Reason: Per Pain Protocol/Fever > 101 Last Admin: 06/13/22 07:53 Dose: 650 mg Hydrocodone Bitart/Acetaminophen (Hydrocodone/Apap 5/325mg Tablet) 1 tab PO Q6HP PRN PRN Reason: PAIN LEVEL 3-6 Last Admin: 06/13/22 19:54 Dose: 1 tab Albuterol/Ipratropium (Ipratropium/Albuterol 3 Ml Ampul.Neb) 3 ml NEB Q4HP PRN PRN Reason: Shortness Of Breath Bupropion HCl (Bupropion 150 Mg Tab.Xl.24h) 300 mg PO DAILY [facility] Last Admin: 06/14/22 08:35 Dose: 300 mg Carisoprodol (Carisoprodol 350 Mg Tablet) 350 mg PO BIDP PRN PRN Reason: muscle pain Last Admin: 06/13/22 21:11 Dose: 350 mg Ceftriaxone Sodium (Ceftriaxone 1 Gm Vial) 1 gm IV Q24H [facility] Last Admin: 06/14/22 08:52 Dose: 1 gm Cyclobenzaprine HCl (Cyclobenzaprine 10 Mg Tablet) 10 mg PO TIDP PRN PRN Reason: Muscle Spasm Last Admin: 06/13/22 19:26 Dose: 10 mg Dextrose (Dextrose 50% 50 Ml Vial) 0 ml IV UD PRN PRN Reason: Per Sliding Scale Diagnostic Test (Pha) (Accu-Chek 1 Each Strip) 1 each FS ACHS [facility] Last Admin: 06/14/22 07:50 Dose: 1 each Diphenhydramine HCl (Diphenhydramine 25 Mg Capsule) 25 mg PO HSP PRN PRN Reason: Insomnia Last Admin: 06/13/22 20:23 Dose: 25 mg Enoxaparin Sodium (Enoxaparin 40 Mg/0.4 Ml Syringe) 40 mg SQ DAILY [facility] Last Admin: 06/14/22 08:34 Dose: 40 mg Gabapentin (Gabapentin 300 Mg Capsule) 600 mg PO HS [facility] Last Admin: 06/13/22 19:55 Dose: 600 mg Glucose (Dextrose 31 Gm Oral.Susp) 15 gm PO PRN PRN PRN Reason: Hypoglycemia Potassium Chloride 40 meq/ (Dextrose) 520 mls @ 130 mls/hr IV UD PRN PRN Reason: Potassium < 3 Magnesium Sulfate (Magnesium Sulfate) 2 gm in 50 mls @ 50 mls/hr IV UD PRN PRN Reason: Magnesium </= 1.6 Metronidazole (Flagyl) 500 mg in 100 mls @ 100 mls/hr IV Q8H [facility]; Protocol Last Infusion: 06/14/22 07:02 Dose: Infused Insulin Human Lispro (Insulin Lispro 1 Unit/0.01 Ml Unit) 0 unit SQ ACHS [facility]; Protocol Last Admin: 06/14/22 07:51 Dose: Not Given Levothyroxine Sodium (Levothyroxine 100 Mcg Tablet) 200 mcg PO ACB [facility] Last Admin: 06/14/22 08:34 Dose: 200 mcg Melatonin (Melatonin 3 Mg Tablet) 3 mg PO QHS [facility] Last Admin: 06/13/22 19:55 Dose: 3 mg Nicotine Polacrilex (Nicotine Polacrilex 2 Mg Gum) 2 mg CHEW/PARK Q4HP PRN PRN Reason: tobacco Olanzapine (Olanzapine 5 Mg Tablet) 5 mg PO HS PRN PRN Reason: Agitation Omeprazole (Omeprazole 20 Mg Capsule) 20 mg PO ACB [facility] Last Admin: 06/14/22 08:34 Dose: 20 mg Ondansetron HCl (Ondansetron 4 Mg/2 Ml Vial) 4 mg IV Q4HP PRN PRN Reason: Nausea And Vomiting Last Admin: 06/14/22 08:31 Dose: 4 mg Oxybutynin Chloride (Oxybutynin Chloride 5 Mg Tablet) 5 mg PO TID [facility] Last Admin: 06/14/22 08:35 Dose: 5 mg Polyethylene Glycol (Polyethylene Glycol 3350 17 Gm Packet) 17 gm PO DAILYP PRN PRN Reason: Constipation Potassium Chloride (Potassium Chloride 20 Meq Tablet) 40 meq PO UD PRN PRN Reason: Potssium is 3-3.5 Last Admin: 06/14/22 08:35 Dose: 40 meq Potassium Chloride (Potassium Chloride 20 Meq Tablet) 40 meq PO UD PRN PRN Reason: Potassium < 3 Prazosin HCl (Prazosin 1 Mg Capsule) 3 mg PO DAILY [facility] Last Admin: 06/14/22 08:35 Dose: 3 mg Propranolol HCl (Propranolol 60 Mg Cap.Xl.24h) 60 mg PO DAILY [facility] Last Admin: 06/14/22 08:35 Dose: 60 mg Fluticasone/Salmeterol (Fluticasone/Salmeterol 250/50 Inhaler #14) 1 puff INH BID [facility] Last Admin: 06/14/22 08:34 Dose: Not Given Senna (Sennosides 1 Tablet) 2 tab PO DAILYP PRN PRN Reason: Constipation Sertraline HCl (Sertraline 100 Mg Tablet) 300 mg PO QDAY [facility] Last Admin: 06/14/22 08:35 Dose: 300 mg Sodium Chloride (0.9 % Sodium Chloride 10 Ml Syringe) 10 ml IV Q8 [facility] Last Admin: 06/14/22 05:45 Dose: 10 ml Trazodone HCl (Trazodone Hcl 100 Mg Tablet) 100 mg PO QHS [facility] Last Admin: 06/13/22 19:55 Dose: 100 mg A/P Narrative A/P Narrative: A: *Acute hypoxic respiratory failure: 2/2 aspiration pneumonia -flu/rsv/covid neg -on 2L NC *Aspiration PNA: -elevated PCT but improving *Oropharyngeal Dysphagia, moderate: *Sepsis: -leukocytosis improving *Metabolic encephalopathy acute on chronic: improving -mRI brain with atrophy and chronic ischemic changes, no acute pathology *Dementia: *??Syncope: first fall unwitnessed, second fall nonsyncopal *Generalized weakness/deconditioning/falling/debility: -Patient has been declining since last hospitalization per family @[facility] *Volume depletion: improving *Hypophosphatemia: Replace *Pre-DM2: *CKD II: *Anemia, chronic, macrocytoic: b12/folate ok *PREETHI on CPAP: *COPD (not on home O2): *HTN: *Depression: *Essential tremor: On propranolol *Hypothyroidism: *GERD: *Tobacco abuse: *Chronic back pain: no new fx's on xray P: -O2 supp, wean as able -abx, pending BC/SC-> neg -IS/Acapella, prn nebs, RT -f/u CXR-> bilateral mid and lower lung infiltrates with slight worsening right lower lung since yesterday. Suspect aspiration -monitor UOP, i/o -Monitor and replace electrolytes -cpap qhs -Smoking cessation counseling -PT/OT -CM for placement needs -ppx: lovenox / home PPI Time Spent With Patient Time: Total time spent is greater than 50% in coordination of care (as documented) at patient's floor/unit and/or counseling patient: QUALITY VTE Deep Vein Thrombosis/Pulmonary Embolism Present on Admission: No
[2022-06-14] MEDS: ACETAMINOPHEN 325 MG TABLET PO PRN (14:52)
[2022-06-14] MEDS: LACTATED RINGERS 1,000 ML IV SCH (15:22)
[2022-06-14] MEDS: GABAPENTIN 300 MG CAPSULE PO SCH (20:30)
[2022-06-14] MEDS: traZODone HCL 100 MG TABLET PO SCH (20:30)
[2022-06-14] MEDS: CYCLOBENZAPRINE 10 MG TABLET PO PRN (20:30)
[2022-06-14] MEDS: MELATONIN 3 MG TABLET PO SCH (20:31)
[2022-06-14] MEDS: OLANZapine 5 MG TABLET PO PRN (20:31)
[2022-06-14] MEDS: HYDROcodone/APAP 5/325MG TABLET PO PRN (20:32)
[2022-06-14] MEDS: diphenhydrAMINE 25 MG CAPSULE PO PRN (20:34)
[2022-06-15] MEDS: metroNIDAZOLE 500 MG/100 ML BAG IV SCH (05:02)
[2022-06-15] MEDS: LACTATED RINGERS 1,000 ML IV SCH ×2 (05:14→18:53)
[2022-06-15] MEDS: 0.9 % SODIUM CHLORIDE 10 ML SYRINGE IV SCH ×3 (06:53→20:25)
--- NOTE | 2022-06-15 09:04 | Internal Med Progress Note ---
SUBJECTIVE Subjective Patient information: Note initiated : 06/15/22 at 9:02 am Service Date, if different from initiated Date: [] Patient: Tae Newell Sr 71 y/o M admitted on 06/10/22 for Modified barium swallow inpatient. Chief Complaint: [Failure to thrive] Principal diagnosis: Aspiration pneumonia, encephalopathy Interval history: The patient was resting comfortably in his chair. Discussed the case with the R Medardo who was present at the bedside. Constitutional Vitals: Vital Signs Temp Pulse Resp BP Pulse Ox O2 Del Method O2 Flow Rate 98.3 F 73 21 135/78 93 1 06/15/22 08:14 06/15/22 08:14 06/15/22 08:14 06/15/22 08:14 06/15/22 08:14 06/15/22 08:14 06/15/22 08:14 Period Temp Pulse Resp BP Sys/Su Pulse Ox O2 Del Method O2 Flow Rate Last 24 Hr 97.3 F-98.7 F 65-87 17-27 102-165/55-87 2-96 Nasal Cannula- Room Air 1-2 Intake and Output 06/14/22 06/15/22 06/15/22 19:59 03:59 11:59 Intake Total 151 902 1569 Output Total 375 0 350 Balance 105 200 750 Weight 68.583 kg Intake & Output: Intake & Output 06/14/22 06/15/22 06/15/22 19:59 03:59 11:59 Intake Total 190 299 3721 Output Total 375 0 350 Balance 105 200 750 Weight 68.583 kg Intake: Nourishment/Supplement quantity 120 (ml) IV 020 391 5297 Lactated Ringers 1,000 ml @ 75 1000 mls/hr IV .[id number] [facility] Rx#: [id number] Oral 260 100 Output: Urine Catheter Amount 375 Void Amount 0 350 Other: Meal Dinner Breakfast Percent of Meal Consumed 25% 90% Feeding Ability Needs Supervision Needs Supervision Nourishment/Supplement name Ensure Urine Color Brown Light [place] Stool Size Moderate Stool Color Brown Green Stool Consistency Bella Loose Head Head exam: Present atraumatic and normal inspection Eye Eye exam: Present normal appearance ENT ENT exam: Present mucous membranes moist, normal exam and normal external ear exam Neck Neck exam: Present normal inspection Respiratory Respiratory exam: Present decreased breath sounds Cardiovascular Cardiovascular exam: Present normal rate and rhythm GI/Abdominal GI/Abdominal exam: Present normal bowel sounds Back Exam Back exam: Present normal inspection Neurological Exam Neurological exam: Present alert Skin Skin exam: Present intact and warm OBJ DATA Labs CBC & Chem 7: 06/14/22 05:50 06/13/22 09:47 Labs: Abnormal Lab Results 06/14/22 06/13/22 06/13/22 05:50 09:47 09:47 RBC 2.47 L Hgb 9.1 L 7.8 L Hct 28.5 L 24.3 L Immature Gran % (Auto) 1.7 H Neut % (Auto) 88.8 H Lymph % (Auto) 4.7 L Lymph # (Auto) 0.46 L Immature Gran # 0.17 H Absolute Neutrophils 8.77 H Glucose 138 H Calcium 8.4 L Phosphorus 1.7 L Total Protein 5.5 L Albumin 2.6 L Albumin/Globulin Ratio 0.9 L Meds: Medications Acetaminophen (Acetaminophen 325 Mg Tablet) 650 mg PO Q6HP PRN; Protocol PRN Reason: Per Pain Protocol/Fever > 101 Last Admin: 06/14/22 14:52 Dose: 650 mg Hydrocodone Bitart/Acetaminophen (Hydrocodone/Apap 5/325mg Tablet) 1 tab PO Q6HP PRN PRN Reason: PAIN LEVEL 3-6 Last Admin: 06/14/22 20:32 Dose: 1 tab Albuterol/Ipratropium (Ipratropium/Albuterol 3 Ml Ampul.Neb) 3 ml NEB Q4HP PRN PRN Reason: Shortness Of Breath Bupropion HCl (Bupropion 150 Mg Tab.Xl.24h) 300 mg PO DAILY [facility] Last Admin: 06/14/22 08:35 Dose: 300 mg Carisoprodol (Carisoprodol 350 Mg Tablet) 350 mg PO BIDP PRN PRN Reason: muscle pain Last Admin: 06/13/22 21:11 Dose: 350 mg Dextrose (Dextrose 50% 50 Ml Vial) 0 ml IV UD PRN PRN Reason: Per Sliding Scale Diagnostic Test (Pha) (Accu-Chek 1 Each Strip) 1 each FS ACHS [facility] Last Admin: 06/14/22 21:00 Dose: 1 each Enoxaparin Sodium (Enoxaparin 40 Mg/0.4 Ml Syringe) 40 mg SQ DAILY [facility] Last Admin: 06/14/22 08:34 Dose: 40 mg Gabapentin (Gabapentin 300 Mg Capsule) 600 mg PO HS [facility] Last Admin: 06/14/22 20:30 Dose: 600 mg Glucose (Dextrose 31 Gm Oral.Susp) 15 gm PO PRN PRN PRN Reason: Hypoglycemia Potassium Chloride 40 meq/ (Dextrose) 520 mls @ 130 mls/hr IV UD PRN PRN Reason: Potassium < 3 Magnesium Sulfate (Magnesium Sulfate) 2 gm in 50 mls @ 50 mls/hr IV UD PRN PRN Reason: Magnesium </= 1.6 Lactated Ringer's (Lactated Ringers) 1,000 mls @ 75 mls/hr IV .[id number] [facility] Last Admin: 06/15/22 05:14 Dose: 75 mls/hr Insulin Human Lispro (Insulin Lispro 1 Unit/0.01 Ml Unit) 0 unit SQ [facility]; Protocol Last Admin: 06/14/22 21:52 Dose: Not Given Levothyroxine Sodium (Levothyroxine 100 Mcg Tablet) 200 mcg PO ACB [facility] Last Admin: 06/14/22 08:34 Dose: 200 mcg Melatonin (Melatonin 3 Mg Tablet) 3 mg PO QHS [facility] Last Admin: 06/14/22 20:31 Dose: 3 mg Nicotine Polacrilex (Nicotine Polacrilex 2 Mg Gum) 2 mg CHEW/PARK Q4HP PRN PRN Reason: tobacco Olanzapine (Olanzapine 5 Mg Tablet) 5 mg PO HS PRN PRN Reason: Agitation Last Admin: 06/14/22 20:31 Dose: 5 mg Omeprazole (Omeprazole 20 Mg Capsule) 20 mg PO ACB [facility] Last Admin: 06/14/22 08:34 Dose: 20 mg Ondansetron HCl (Ondansetron 4 Mg/2 Ml Vial) 4 mg IV Q4HP PRN PRN Reason: Nausea And Vomiting Last Admin: 06/14/22 08:31 Dose: 4 mg Oxybutynin Chloride (Oxybutynin Chloride 5 Mg Tablet) 5 mg PO TID [facility] Last Admin: 06/14/22 20:31 Dose: 5 mg Polyethylene Glycol (Polyethylene Glycol 3350 17 Gm Packet) 17 gm PO DAILYP PRN PRN Reason: Constipation Potassium Chloride (Potassium Chloride 20 Meq Tablet) 40 meq PO UD PRN PRN Reason: Potssium is 3-3.5 Last Admin: 06/14/22 08:35 Dose: 40 meq Potassium Chloride (Potassium Chloride 20 Meq Tablet) 40 meq PO UD PRN PRN Reason: Potassium < 3 Prazosin HCl (Prazosin 1 Mg Capsule) 3 mg PO DAILY [facility] Last Admin: 06/14/22 08:35 Dose: 3 mg Propranolol HCl (Propranolol 60 Mg Cap.Xl.24h) 60 mg PO DAILY [facility] Last Admin: 06/14/22 08:35 Dose: 60 mg Fluticasone/Salmeterol (Fluticasone/Salmeterol 250/50 Inhaler #14) 1 puff INH BID [facility] Last Admin: 06/14/22 20:32 Dose: Not Given Senna (Sennosides 1 Tablet) 2 tab PO DAILYP PRN PRN Reason: Constipation Sertraline HCl (Sertraline 100 Mg Tablet) 300 mg PO QDAY [facility] Last Admin: 06/14/22 08:35 Dose: 300 mg Sodium Chloride (0.9 % Sodium Chloride 10 Ml Syringe) 10 ml IV Q8 [facility] Last Admin: 06/15/22 06:53 Dose: 10 ml Trazodone HCl (Trazodone Hcl 100 Mg Tablet) 100 mg PO QHS [facility] Last Admin: 06/14/22 20:30 Dose: 100 mg A/P Narrative A/P Narrative: 06/15: APS case has been filed. The patient has dysphagia per ASSEMBLER TUBING. He is noncompliant with his dysphagia diet and has had poor p.o. intake. He remains on IV fluids and is on 2 L of supplemental O2. He is now completed 5 days of ceftriaxone and Flagyl. It is highly recommended that he have a goals of care discussion with the family. Disposition is pending. A: *Acute hypoxic respiratory failure: 2/2 aspiration pneumonia -flu/rsv/covid neg -on 2L NC *Aspiration PNA: -elevated PCT but improving *Oropharyngeal Dysphagia, moderate: *Sepsis: -leukocytosis improving *Metabolic encephalopathy acute on chronic: improving -mRI brain with atrophy and chronic ischemic changes, no acute pathology *Dementia: *??Syncope: first fall unwitnessed, second fall nonsyncopal *Generalized weakness/deconditioning/falling/debility: -Patient has been declining since last hospitalization per family @[facility] *Volume depletion: improving *Hypophosphatemia: Replace *Pre-DM2: *CKD II: *Anemia, chronic, macrocytoic: b12/folate ok *PREETHI on CPAP: *COPD (not on home O2): *HTN: *Depression: *Essential tremor: On propranolol *Hypothyroidism: *GERD: *Tobacco abuse: *Chronic back pain: no new fx's on xray P: -O2 supp, wean as able -abx, pending BC/SC-> neg -IS/Acapella, prn nebs, RT -f/u CXR-> bilateral mid and lower lung infiltrates with slight worsening right lower lung since yesterday. Suspect aspiration -monitor UOP, i/o -Monitor and replace electrolytes -cpap qhs -Smoking cessation counseling -PT/OT -CM for placement needs -ppx: lovenox / home PPI Time Spent With Patient Time: Total time spent is greater than 50% in coordination of care (as documented) at patient's floor/unit and/or counseling patient: QUALITY VTE Deep Vein Thrombosis/Pulmonary Embolism Present on Admission: No
[2022-06-15] MEDS: INSULIN LISPRO 1 UNIT/0.01 ML UNIT SQ SCH ×4 (09:14→20:24)
--- NOTE | 2022-06-15 09:14 | XRay Report ---
HISTORY: Aspiration pneumonia FINDINGS: Patient was imaged upright in a lateral projection using thin, intermediate and thicker consistencies of liquid barium. During the initial swallow of thin liquid barium there was significant penetration of barium into the vestibule of the larynx. There was a small amount of aspiration below the vocal cords. There was a delayed cough reflex. He did not aspirate the intermediate or thicker consistencies of barium. There is mild pooling in the vallecula which cleared with sequential swallows. There is relatively little pooling in the piriform sinuses. Cervical esophagus has normal distensibility and normal mucosal pattern. Incidentally noted are stable postoperative changes following cervical fusion from C4 through C7. 32 seconds of fluoroscopy time was used. IMPRESSION: Aspiration Interpreted and Authenticated by: Rayo Prasad 06/15/22
[2022-06-15] MEDS: FLUTICASONE/SALMETEROL 250/50 INHALER #14 INH SCH (09:19)
[2022-06-15] MEDS: PRAZOSIN 1 MG CAPSULE PO SCH (09:27)
[2022-06-15] MEDS: buPROPion 150 MG TAB.XL.24H PO SCH (09:27)
[2022-06-15] MEDS: PROPRANOLOL 60 MG CAP.XL.24H PO SCH (09:27)
[2022-06-15] MEDS: LEVOTHYROXINE 100 MCG TABLET PO SCH (09:27)
[2022-06-15] MEDS: OMEPRAZOLE 20 MG CAPSULE PO SCH (09:27)
[2022-06-15] MEDS: SERTRALINE 100 MG TABLET PO SCH (09:27)
[2022-06-15] MEDS: OXYBUTYNIN CHLORIDE 5 MG TABLET PO SCH ×3 (09:27→20:27)
[2022-06-15] MEDS: ENOXAPARIN 40 MG/0.4 ML SYRINGE SQ SCH (09:28)
[2022-06-15] MEDS ORDERED: HALOPERIDOL LACTATE 5 MG/ML VIAL IV ONE (18:39)
[2022-06-15] MEDS: OLANZapine 5 MG TABLET PO PRN (18:48)
[2022-06-15] MEDS: HYDROcodone/APAP 5/325MG TABLET PO PRN (18:48)
[2022-06-15] MEDS: traZODone HCL 100 MG TABLET PO SCH (20:23)
[2022-06-15] MEDS: GABAPENTIN 300 MG CAPSULE PO SCH (20:24)
[2022-06-15] MEDS: CARISOPRODOL 350 MG TABLET PO PRN (20:24)
[2022-06-15] MEDS: MELATONIN 3 MG TABLET PO SCH (20:24)
[2022-06-15] MEDS: BUDESONIDE 0.5 MG/2 ML AMPUL.NEB NEB SCH (22:43)
[2022-06-16] MEDS: 0.9 % SODIUM CHLORIDE 10 ML SYRINGE IV SCH ×4 (05:35→21:18)
[2022-06-16] MEDS: OMEPRAZOLE 20 MG CAPSULE PO SCH (07:51)
[2022-06-16] MEDS: LEVOTHYROXINE 100 MCG TABLET PO SCH (07:51)
[2022-06-16] MEDS: INSULIN LISPRO 1 UNIT/0.01 ML UNIT SQ SCH ×4 (07:52→20:37)
[2022-06-16] MEDS: LACTATED RINGERS 1,000 ML IV SCH (08:34)
[2022-06-16] MEDS: PROPRANOLOL 60 MG CAP.XL.24H PO SCH (08:41)
[2022-06-16] MEDS: OXYBUTYNIN CHLORIDE 5 MG TABLET PO SCH ×3 (08:41→20:37)
[2022-06-16] MEDS: SERTRALINE 100 MG TABLET PO SCH (08:42)
[2022-06-16] MEDS: buPROPion 150 MG TAB.XL.24H PO SCH (08:42)
[2022-06-16] MEDS: PRAZOSIN 1 MG CAPSULE PO SCH (08:42)
[2022-06-16] MEDS: ENOXAPARIN 40 MG/0.4 ML SYRINGE SQ SCH (08:42)
[2022-06-16] MEDS: BUDESONIDE 0.5 MG/2 ML AMPUL.NEB NEB SCH ×2 (09:17→22:41)
--- NOTE | 2022-06-16 10:12 | Internal Med Progress Note ---
SUBJECTIVE Subjective Patient information: Note initiated : 06/16/22 at 10:11 am Service Date, if different from initiated Date: [] Patient: Tae Newell Sr 71 y/o M admitted on 06/10/22 for Modified barium swallow inpatient. Chief Complaint: Failure to thrive Principal diagnosis: Aspiration pneumonia, encephalopathy Interval history: The patient was resting comfortably in bed. He was able to take his p.o. Zyprexa last night and did not require IV Haldol. He was calm and cooperative this morning. Discussed disposition with multidisciplinary team Constitutional Vitals: Vital Signs Temp Pulse Resp BP Pulse Ox O2 Del Method O2 Flow Rate 98.6 F 76 25 H 153/121 93 2 06/16/22 07:43 06/16/22 09:19 06/16/22 10:01 06/16/22 10:01 06/16/22 10:01 06/16/22 10:01 06/16/22 02:00 Period Temp Pulse Resp BP Sys/Su Pulse Ox O2 Del Method O2 Flow Rate Last 24 Hr 97.0 F-98.8 F 70-82 17-26 108-157/66-121 90-98 Nasal Cannula- Room Air, Nasal Cannula, CPAP 2-2 Intake and Output 06/15/22 06/16/22 06/16/22 19:59 03:59 11:59 Intake Total 6042 659 6884 Output Total 1 400 1 Balance 1349 -160 999 Weight 68.583 kg 71.622 kg Intake & Output: Intake & Output 06/15/22 06/16/22 06/16/22 19:59 03:59 11:59 Intake Total 6542 062 1479 Output Total 1 400 1 Balance 1349 -160 999 Weight 68.583 kg 71.622 kg Intake: Nourishment/Supplement quantity 300 (ml) IV 1000 1000 Lactated Ringers 1,000 ml @ 75 1000 1000 mls/hr IV .[id number] [facility] Rx#: [id number] Oral 50 240 Output: Void Amount 400 # of times incontinent of urine 1 1 Other: Meal Lunch Breakfast Percent of Meal Consumed 25% 75% Feeding Ability Needs Supervision Needs Supervision Nourishment/Supplement name Ensure Milkshake Urine Appearance Clear Urine Color Tea Colored Head Head exam: Present atraumatic and normal inspection Eye Eye exam: Present normal appearance ENT ENT exam: Present mucous membranes moist, normal exam and normal external ear exam Neck Neck exam: Present normal inspection Respiratory Respiratory exam: Present normal respiratory exam Cardiovascular Cardiovascular exam: Present normal rate and rhythm GI/Abdominal GI/Abdominal exam: Present normal bowel sounds Back Exam Back exam: Present normal inspection Neurological Exam Neurological exam: Present alert Skin Skin exam: Present intact and warm OBJ DATA Labs CBC & Chem 7: 06/14/22 05:50 06/13/22 09:47 Labs: Abnormal Lab Results 06/14/22 06/13/22 06/13/22 05:50 09:47 09:47 RBC 2.47 L Hgb 9.1 L 7.8 L Hct 28.5 L 24.3 L Immature Gran % (Auto) 1.7 H Neut % (Auto) 88.8 H Lymph % (Auto) 4.7 L Lymph # (Auto) 0.46 L Immature Gran # 0.17 H Absolute Neutrophils 8.77 H Glucose 138 H Calcium 8.4 L Phosphorus 1.7 L Total Protein 5.5 L Albumin 2.6 L Albumin/Globulin Ratio 0.9 L Meds: Medications Acetaminophen (Acetaminophen 325 Mg Tablet) 650 mg PO Q6HP PRN; Protocol PRN Reason: Per Pain Protocol/Fever > 101 Last Admin: 06/14/22 14:52 Dose: 650 mg Hydrocodone Bitart/Acetaminophen (Hydrocodone/Apap 5/325mg Tablet) 1 tab PO Q6HP PRN PRN Reason: PAIN LEVEL 3-6 Last Admin: 06/15/22 18:48 Dose: 1 tab Albuterol/Ipratropium (Ipratropium/Albuterol 3 Ml Ampul.Neb) 3 ml NEB Q4HP PRN PRN Reason: Shortness Of Breath Budesonide (Budesonide 0.5 Mg/2 Ml Ampul.Neb) 0.5 mg NEB Q12 [facility] Last Admin: 06/16/22 09:17 Dose: 0.5 mg Bupropion HCl (Bupropion 150 Mg Tab.Xl.24h) 300 mg PO DAILY [facility] Last Admin: 06/16/22 08:42 Dose: 300 mg Carisoprodol (Carisoprodol 350 Mg Tablet) 350 mg PO BIDP PRN PRN Reason: muscle pain Last Admin: 06/15/22 20:24 Dose: 350 mg Dextrose (Dextrose 50% 50 Ml Vial) 0 ml IV UD PRN PRN Reason: Per Sliding Scale Diagnostic Test (Pha) (Accu-Chek 1 Each Strip) 1 each FS ACHS [facility] Last Admin: 06/16/22 07:51 Dose: 1 each Enoxaparin Sodium (Enoxaparin 40 Mg/0.4 Ml Syringe) 40 mg SQ DAILY [facility] Last Admin: 06/16/22 08:42 Dose: 40 mg Gabapentin (Gabapentin 300 Mg Capsule) 600 mg PO HS [facility] Last Admin: 06/15/22 20:24 Dose: 600 mg Glucose (Dextrose 31 Gm Oral.Susp) 15 gm PO PRN PRN PRN Reason: Hypoglycemia Potassium Chloride 40 meq/ (Dextrose) 520 mls @ 130 mls/hr IV UD PRN PRN Reason: Potassium < 3 Magnesium Sulfate (Magnesium Sulfate) 2 gm in 50 mls @ 50 mls/hr IV UD PRN PRN Reason: Magnesium </= 1.6 Insulin Human Lispro (Insulin Lispro 1 Unit/0.01 Ml Unit) 0 unit SQ [facility]; Protocol Last Admin: 06/16/22 07:52 Dose: Not Given Levothyroxine Sodium (Levothyroxine 100 Mcg Tablet) 200 mcg PO ACB [facility] Last Admin: 06/16/22 07:51 Dose: 200 mcg Melatonin (Melatonin 3 Mg Tablet) 3 mg PO QHS [facility] Last Admin: 06/15/22 20:24 Dose: 3 mg Nicotine Polacrilex (Nicotine Polacrilex 2 Mg Gum) 2 mg CHEW/PARK Q4HP PRN PRN Reason: tobacco Olanzapine (Olanzapine 5 Mg Tablet) 5 mg PO HS PRN PRN Reason: Agitation Last Admin: 06/15/22 18:48 Dose: 5 mg Omeprazole (Omeprazole 20 Mg Capsule) 20 mg PO ACB [facility] Last Admin: 06/16/22 07:51 Dose: 20 mg Ondansetron HCl (Ondansetron 4 Mg/2 Ml Vial) 4 mg IV Q4HP PRN PRN Reason: Nausea And Vomiting Last Admin: 06/14/22 08:31 Dose: 4 mg Oxybutynin Chloride (Oxybutynin Chloride 5 Mg Tablet) 5 mg PO TID [facility] Last Admin: 06/16/22 08:41 Dose: 5 mg Polyethylene Glycol (Polyethylene Glycol 3350 17 Gm Packet) 17 gm PO DAILYP PRN PRN Reason: Constipation Potassium Chloride (Potassium Chloride 20 Meq Tablet) 40 meq PO UD PRN PRN Reason: Potssium is 3-3.5 Last Admin: 06/14/22 08:35 Dose: 40 meq Potassium Chloride (Potassium Chloride 20 Meq Tablet) 40 meq PO UD PRN PRN Reason: Potassium < 3 Prazosin HCl (Prazosin 1 Mg Capsule) 3 mg PO DAILY [facility] Last Admin: 06/16/22 08:42 Dose: 3 mg Propranolol HCl (Propranolol 60 Mg Cap.Xl.24h) 60 mg PO DAILY [facility] Last Admin: 06/16/22 08:41 Dose: 60 mg Senna (Sennosides 1 Tablet) 2 tab PO DAILYP PRN PRN Reason: Constipation Sertraline HCl (Sertraline 100 Mg Tablet) 300 mg PO QDAY [facility] Last Admin: 06/16/22 08:42 Dose: 300 mg Sodium Chloride (0.9 % Sodium Chloride 10 Ml Syringe) 10 ml IV Q8 [facility] Last Admin: 06/16/22 05:35 Dose: Not Given Trazodone HCl (Trazodone Hcl 100 Mg Tablet) 100 mg PO QHS [facility] Last Admin: 06/15/22 20:23 Dose: 100 mg A/P Narrative A/P Narrative: 06/15: APS case has been filed. The patient has dysphagia per ATTACHER. He is nonc ompliant with his dysphagia diet and has had poor p.o. intake. He remains on IV fluids and is on 2 L of supplemental O2. He is now completed 5 days of ceftriaxone and Flagyl. It is highly recommended that he have a goals of care discussion with the family. Disposition is pending. A: *Acute hypoxic respiratory failure: 2/2 aspiration pneumonia -flu/rsv/covid neg -on 1-2L NC *Aspiration PNA: -elevated PCT but improving *Oropharyngeal Dysphagia, moderate: *Sepsis: -leukocytosis normalized *Metabolic encephalopathy acute on chronic: improving -mRI brain with atrophy and chronic ischemic changes, no acute pathology *Dementia: *??Syncope: first fall unwitnessed, second fall nonsyncopal *Generalized weakness/deconditioning/falling/debility: -Patient has been declining since last hospitalization per family @[facility] *Volume depletion: improving *Hypophosphatemia: Replace *Pre-DM2: *CKD II: *Anemia, chronic, macrocytoic: b12/folate ok *PREETHI on CPAP: *COPD (not on home O2): *HTN: *Depression: *Essential tremor: On propranolol *Hypothyroidism: *GERD: *Tobacco abuse: *Chronic back pain: no new fx's on xray P: -O2 supp, wean as able -abx, pending BC/SC-> neg -IS/Acapella, prn nebs, RT -f/u CXR-> bilateral mid and lower lung infiltrates with slight worsening right lower lung since yesterday. Suspect aspiration -monitor UOP, i/o -Monitor and replace electrolytes -cpap qhs -Smoking cessation counseling -PT/OT -CM for placement needs -ppx: lovenox / home PPI Time Spent With Patient Time: Total time spent is greater than 50% in coordination of care (as documented) at patient's floor/unit and/or counseling patient: QUALITY VTE Deep Vein Thrombosis/Pulmonary Embolism Present on Admission: No
[2022-06-16] MEDS: CARISOPRODOL 350 MG TABLET PO PRN (18:59)
[2022-06-16] MEDS: HYDROcodone/APAP 5/325MG TABLET PO PRN (19:00)
[2022-06-16] MEDS: OLANZapine 5 MG TABLET PO PRN (19:00)
[2022-06-16] MEDS: MELATONIN 3 MG TABLET PO SCH (20:37)
[2022-06-16] MEDS: traZODone HCL 100 MG TABLET PO SCH (20:37)
[2022-06-16] MEDS: GABAPENTIN 300 MG CAPSULE PO SCH (20:37)
[2022-06-17] MEDS: 0.9 % SODIUM CHLORIDE 10 ML SYRINGE IV SCH ×3 (04:16→20:10)
[2022-06-17] MEDS: PROPRANOLOL 60 MG CAP.XL.24H PO SCH (08:04)
[2022-06-17] MEDS: INSULIN LISPRO 1 UNIT/0.01 ML UNIT SQ SCH ×4 (08:04→20:14)
[2022-06-17] MEDS: PRAZOSIN 1 MG CAPSULE PO SCH (08:04)
[2022-06-17] MEDS: LEVOTHYROXINE 100 MCG TABLET PO SCH (08:05)
[2022-06-17] MEDS: OMEPRAZOLE 20 MG CAPSULE PO SCH (08:05)
[2022-06-17] MEDS: OXYBUTYNIN CHLORIDE 5 MG TABLET PO SCH ×3 (08:05→20:03)
[2022-06-17] MEDS: buPROPion 150 MG TAB.XL.24H PO SCH (08:05)
[2022-06-17] MEDS: ENOXAPARIN 40 MG/0.4 ML SYRINGE SQ SCH (08:05)
[2022-06-17] MEDS: SERTRALINE 100 MG TABLET PO SCH (08:12)
[2022-06-17] MEDS: BUDESONIDE 0.5 MG/2 ML AMPUL.NEB NEB SCH ×2 (09:25→21:44)
--- NOTE | 2022-06-17 11:54 | Internal Med Progress Note ---
SUBJECTIVE Subjective Patient information: Note initiated : 06/17/22 at 11:53 am Service Date, if different from initiated Date: [] Patient: Tae Newell Sr 71 y/o M admitted on 06/10/22 for Modified barium swallow inpatient. Chief Complaint: [AMS] Principal diagnosis: Aspiration pneumonia, encephalopathy Interval history: The patient was resting comfortably in bed. He was able to take his p.o. Zyprexa last night and did not require IV Haldol. He was calm and cooperative this morning. Discussed disposition with multidisciplinary team Constitutional Vitals: Vital Signs Temp Pulse Resp BP Pulse Ox O2 Del Method O2 Flow Rate 98.8 F 83 18 156/73 94 2 06/17/22 07:24 06/17/22 09:27 06/17/22 09:27 06/17/22 07:24 06/17/22 09:27 06/17/22 09:27 06/16/22 02:00 Period Temp Pulse Resp BP Sys/Su Pulse Ox O2 Del Method O2 Flow Rate Last 24 Hr 98.4 F-99.5 F 65-83 16-24 127-156/68-84 91-95 Room Air-Room Air Intake and Output 06/16/22 06/17/22 06/17/22 19:59 03:59 11:59 Intake Total 1000 100 Output Total 850 355 3 Balance -850 645 97 Weight 70.851 kg Intake & Output: Intake & Output 06/16/22 06/17/22 06/17/22 19:59 03:59 11:59 Intake Total 1000 100 Output Total 850 355 3 Balance -850 645 97 Weight 70.851 kg Intake: IV 1000 Lactated Ringers 1,000 ml @ 75 1000 mls/hr IV .[id number] [facility] Rx#: [id number] Oral 100 Output: Void Amount 850 350 # of times incontinent of urine 5 3 Other: Meal Dinner Percent of Meal Consumed 50% Feeding Ability Independent Urine Appearance Clear Clear Urine Color Dark Yellow Yellow Stool Size Moderate Stool Color Brown Green Head Head exam: Present atraumatic and normal inspection Eye Eye exam: Present normal appearance ENT ENT exam: Present mucous membranes moist, normal exam and normal external ear exam Neck Neck exam: Present normal inspection Respiratory Respiratory exam: Present normal respiratory exam Cardiovascular Cardiovascular exam: Present normal rate and rhythm GI/Abdominal GI/Abdominal exam: Present normal bowel sounds Back Exam Back exam: Present normal inspection Neurological Exam Neurological exam: Present alert Skin Skin exam: Present intact and warm OBJ DATA Labs CBC & Chem 7: 06/14/22 05:50 06/13/22 09:47 Meds: Medications Acetaminophen (Acetaminophen 325 Mg Tablet) 650 mg PO Q6HP PRN; Protocol PRN Reason: Per Pain Protocol/Fever > 101 Last Admin: 06/14/22 14:52 Dose: 650 mg Hydrocodone Bitart/Acetaminophen (Hydrocodone/Apap 5/325mg Tablet) 1 tab PO Q6HP PRN PRN Reason: PAIN LEVEL 3-6 Last Admin: 06/16/22 19:00 Dose: 1 tab Albuterol/Ipratropium (Ipratropium/Albuterol 3 Ml Ampul.Neb) 3 ml NEB Q4HP PRN PRN Reason: Shortness Of Breath Budesonide (Budesonide 0.5 Mg/2 Ml Ampul.Neb) 0.5 mg NEB Q12 [facility] Last Admin: 06/17/22 09:25 Dose: 0.5 mg Bupropion HCl (Bupropion 150 Mg Tab.Xl.24h) 300 mg PO DAILY [facility] Last Admin: 06/17/22 08:05 Dose: 300 mg Carisoprodol (Carisoprodol 350 Mg Tablet) 350 mg PO BIDP PRN PRN Reason: muscle pain Last Admin: 06/16/22 18:59 Dose: 350 mg Dextrose (Dextrose 50% 50 Ml Vial) 0 ml IV UD PRN PRN Reason: Per Sliding Scale Diagnostic Test (Pha) (Accu-Chek 1 Each Strip) 1 each FS ACHS [facility] Last Admin: 06/17/22 08:04 Dose: 1 each Enoxaparin Sodium (Enoxaparin 40 Mg/0.4 Ml Syringe) 40 mg SQ DAILY [facility] Last Admin: 06/17/22 08:05 Dose: 40 mg Gabapentin (Gabapentin 300 Mg Capsule) 600 mg PO HS [facility] Last Admin: 06/16/22 20:37 Dose: 600 mg Glucose (Dextrose 31 Gm Oral.Susp) 15 gm PO PRN PRN PRN Reason: Hypoglycemia Potassium Chloride 40 meq/ (Dextrose) 520 mls @ 130 mls/hr IV UD PRN PRN Reason: Potassium < 3 Magnesium Sulfate (Magnesium Sulfate) 2 gm in 50 mls @ 50 mls/hr IV UD PRN PRN Reason: Magnesium </= 1.6 Insulin Human Lispro (Insulin Lispro 1 Unit/0.01 Ml Unit) 0 unit SQ [facility]; Protocol Last Admin: 06/17/22 08:04 Dose: Not Given Levothyroxine Sodium (Levothyroxine 100 Mcg Tablet) 200 mcg PO ACB [facility] Last Admin: 06/17/22 08:05 Dose: 200 mcg Melatonin (Melatonin 3 Mg Tablet) 3 mg PO QHS [facility] Last Admin: 06/16/22 20:37 Dose: 3 mg Nicotine Polacrilex (Nicotine Polacrilex 2 Mg Gum) 2 mg CHEW/PARK Q4HP PRN PRN Reason: tobacco Olanzapine (Olanzapine 5 Mg Tablet) 5 mg PO HS PRN PRN Reason: Agitation Last Admin: 06/16/22 19:00 Dose: 5 mg Omeprazole (Omeprazole 20 Mg Capsule) 20 mg PO ACB [facility] Last Admin: 06/17/22 08:05 Dose: 20 mg Ondansetron HCl (Ondansetron 4 Mg/2 Ml Vial) 4 mg IV Q4HP PRN PRN Reason: Nausea And Vomiting Last Admin: 06/14/22 08:31 Dose: 4 mg Oxybutynin Chloride (Oxybutynin Chloride 5 Mg Tablet) 5 mg PO TID [facility] Last Admin: 06/17/22 08:05 Dose: 5 mg Polyethylene Glycol (Polyethylene Glycol 3350 17 Gm Packet) 17 gm PO DAILYP PRN PRN Reason: Constipation Potassium Chloride (Potassium Chloride 20 Meq Tablet) 40 meq PO UD PRN PRN Reason: Potssium is 3-3.5 Last Admin: 06/14/22 08:35 Dose: 40 meq Potassium Chloride (Potassium Chloride 20 Meq Tablet) 40 meq PO UD PRN PRN Reason: Potassium < 3 Prazosin HCl (Prazosin 1 Mg Capsule) 3 mg PO DAILY [facility] Last Admin: 06/17/22 08:04 Dose: 3 mg Propranolol HCl (Propranolol 60 Mg Cap.Xl.24h) 60 mg PO DAILY [facility] Last Admin: 06/17/22 08:04 Dose: 60 mg Senna (Sennosides 1 Tablet) 2 tab PO DAILYP PRN PRN Reason: Constipation Sertraline HCl (Sertraline 100 Mg Tablet) 300 mg PO QDAY [facility] Last Admin: 06/17/22 08:12 Dose: 300 mg Sodium Chloride (0.9 % Sodium Chloride 10 Ml Syringe) 10 ml IV Q8 [facility] Last Admin: 06/17/22 04:16 Dose: 10 ml Trazodone HCl (Trazodone Hcl 100 Mg Tablet) 100 mg PO QHS [facility] Last Admin: 06/16/22 20:37 Dose: 100 mg A/P Narrative A/P Narrative: 06/15: APS case has been filed. The patient has dysphagia per [employer]. He is noncompliant with his dysphagia diet and has had poor p.o. intake. He remains on IV fluids and is on 2 L of supplemental O2. He is now completed 5 days of ceftriaxone and Flagyl. It is highly recommended that he have a goals of care discussion with the family. Disposition is pending. A: *Acute hypoxic respiratory failure: 2/2 aspiration pneumonia -flu/rsv/covid neg -on 1-2L NC *Aspiration PNA: -elevated PCT but improving *Oropharyngeal Dysphagia, moderate: *Sepsis: -leukocytosis normalized *Metabolic encephalopathy acute on chronic: improving -mRI brain with atrophy and chronic ischemic changes, no acute pathology *Dementia: *??Syncope: first fall unwitnessed, second fall nonsyncopal *Generalized weakness/deconditioning/falling/debility: -Patient has been declining since last hospitalization per family @[facility] *Volume depletion: improving *Hypophosphatemia: Replace *Pre-DM2: *CKD II: *Anemia, chronic, macrocytoic: b12/folate ok *PREETHI on CPAP: *COPD (not on home O2): *HTN: *Depression: *Essential tremor: On propranolol *Hypothyroidism: *GERD: *Tobacco abuse: *Chronic back pain: no new fx's on xray P: -O2 supp, wean as able -abx, pending BC/SC-> neg -IS/Acapella, prn nebs, RT -f/u CXR-> bilateral mid and lower lung infiltrates with slight worsening right lower lung since yesterday. Suspect aspiration -monitor UOP, i/o -Monitor and replace electrolytes -cpap qhs -Smoking cessation counseling -PT/OT -CM for placement needs -ppx: lovenox / home PPI Time Spent With Patient Time: Total time spent is greater than 50% in coordination of care (as documented) at patient's floor/unit and/or counseling patient: Subsequent: Total time with patient: 25 - 34 minutes QUALITY VTE Deep Vein Thrombosis/Pulmonary Embolism Present on Admission: No
[2022-06-17] MEDS: GABAPENTIN 300 MG CAPSULE PO SCH (20:02)
[2022-06-17] MEDS: MELATONIN 3 MG TABLET PO SCH (20:03)
[2022-06-17] MEDS: traZODone HCL 100 MG TABLET PO SCH (20:03)
[2022-06-17] MEDS: CARISOPRODOL 350 MG TABLET PO PRN (20:03)
[2022-06-17] MEDS: OLANZapine 5 MG TABLET PO PRN (20:03)
[2022-06-18] MEDS: LEVOTHYROXINE 100 MCG TABLET PO SCH (06:59)
[2022-06-18] MEDS: OMEPRAZOLE 20 MG CAPSULE PO SCH (06:59)
[2022-06-18] MEDS: 0.9 % SODIUM CHLORIDE 10 ML SYRINGE IV SCH (07:04)
[2022-06-18] MEDS: INSULIN LISPRO 1 UNIT/0.01 ML UNIT SQ SCH ×2 (08:13→11:34)
[2022-06-18] MEDS: buPROPion 150 MG TAB.XL.24H PO SCH (08:17)
[2022-06-18] MEDS: OXYBUTYNIN CHLORIDE 5 MG TABLET PO SCH (08:17)
[2022-06-18] MEDS: SERTRALINE 100 MG TABLET PO SCH (08:17)
[2022-06-18] MEDS: PROPRANOLOL 60 MG CAP.XL.24H PO SCH (08:17)
[2022-06-18] MEDS: PRAZOSIN 1 MG CAPSULE PO SCH (08:17)
[2022-06-18] MEDS: ENOXAPARIN 40 MG/0.4 ML SYRINGE SQ SCH (08:18)
--- NOTE | 2022-06-18 09:08 | Discharge Summary ---
Discharge Provider Provider IMPORTANT FOLLOW-UP INFORMATION FOR PCP: Patient information: Note initiated : 06/18/22 at 9:05 am Service Date, if different from initiated Date: [] Patient: Tae Newell Sr 71 y/o M admitted on 06/10/22 for Modified barium swallow inpatient. Chief Complaint: [AMS, SOB] Date of admission: 06/10/22 23:55 Discharge date: 06/18/22 Primary care physician: Storm Costa MD Consults: 06/10/22 Consult to Physician [CONS] Stat Comment: Consulting Provider: Stephane Menchaca Reason For Exam: Physician to Consult Attending physician on discharge: Jasmit Daylin COURSE Hospital Course Hospital course: Narrative A/P Narrative: 06/15: APS case has been filed. The patient has dysphagia per [employer]. He is no ncompliant with his dysphagia diet and has had poor p.o. intake. He remains on IV fluids and is on 2 L of supplemental O2. He is now completed 5 days of ceftriaxone and Flagyl. It is highly recommended that he have a goals of care discussion with the family. Disposition is pending. 06/18: The patient has remained medically status quo. He has been weaned off supplemental O2. He is completed antibiotics for aspiration pneumonia. He had a modified barium swallow and speech therapy assessment. He has been maintained on a dysphagia diet which he initially declined but has now been compliant. He will be discharged to halfway facility today. A: *Acute hypoxic respiratory failure: 2/2 aspiration pneumonia -flu/rsv/covid neg -on 1-2L NC *Aspiration PNA: -elevated PCT but improving *Oropharyngeal Dysphagia, moderate: *Sepsis: -leukocytosis normalized *Metabolic encephalopathy acute on chronic: improving -mRI brain with atrophy and chronic ischemic changes, no acute pathology *Dementia: *??Syncope: first fall unwitnessed, second fall nonsyncopal *Generalized weakness/deconditioning/falling/debility: -Patient has been declining since last hospitalization per family [facility] *Volume depletion: improving *Hypophosphatemia: Replace *Pre-DM2: *CKD II: *Anemia, chronic, macrocytoic: b12/folate ok *PREETHI on CPAP: *COPD (not on home O2): *HTN: *Depression: *Essential tremor: On propranolol *Hypothyroidism: *GERD: *Tobacco abuse: *Chronic back pain: no new fx's on xray P: -O2 supp, wean as able -abx, pending BC/SC-> neg -IS/Acapella, prn nebs, RT -f/u CXR->bilateral mid and lower lung infiltrates with slight worsening right lower lung since yesterday. Suspect aspiration -monitor UOP, i/o -Monitor and replace electrolytes -cpap qhs -Smoking cessation counseling -PT/OT -CM for placement needs -ppx: lovenox / home PPI Discharge diagnosis: Aspiration pneumonia, dysphagia, failure to thrive Time Spent with Patient Time attestation: Total time spent providing and/or coordinating discharge services: Time spent: Greater than 30 minutes EXAM Constitutional Vitals: Temp Pulse Resp BP Pulse Ox O2 Del Method O2 Flow Rate 97.9 F 70 16 149/85 94 2 06/18/22 08:00 06/18/22 08:00 06/18/22 08:00 06/18/22 08:00 06/18/22 08:00 06/18/22 08:00 06/16/22 02:00 General appearance: average body habitus Head Head exam: Present atraumatic, normal inspection and normocephalic Eye Eye exam: Present EOMI, normal appearance and PERRL; Absent conjunctival injection ENT ENT exam: Present normal exam; Absent mucous membranes dry Neck Neck exam: Present full ROM; Absent lymphadenopathy Respiratory Respiratory exam: Present normal respiratory exam and CTAB; Absent decreased breath sounds, respiratory distress or wheezes Cardiovascular Cardiovascular exam: Present normal rate and rhythm and RRR; Absent JVD GI/Abdominal GI/Abdominal exam: Present normal bowel sounds and soft; Absent diminished bowel sounds, distended, guarding, mass, rebound or tenderness Neurological Exam Neurological exam: Present alert Psychiatric Psychiatric exam: Present normal affect and normal mood Skin Skin exam: Present intact and warm; Absent erythema, pallor, petechiae or rash Discharge Plan Patient/Caregiver Discharge Instructions Activity: increase activity as tolerated Instructions: Dysphagia (ED), Aspiration Precautions (DC), Barium Swallow (DC) Prescriptions: Continued sertraline 100 mg tablet 300 mg PO QDAY trazodone 100 mg tablet 100 mg PO QHS omeprazole 20 mg tablet,delayed release (DR/EC) 20 mg PO QDAY cholecalciferol (vitamin D3) 1,000 unit capsule 2,000 unit PO QDAY levothyroxine [Synthroid] 200 mcg tablet 200 mcg PO QAM vitamin B complex 1 cap PO DAILY gabapentin 300 mg capsule See Rx Instructions .ROUTE .COMPLEX Rx Instructions: 2 caps every morning and 4 caps every night bupropion HCl 300 mg tablet extended release 24 hr 300 mg PO QAM carbamide peroxide 6.5 % drops 5 drp otic (ear) QDAY Rx Instructions: 5 drops both ears daily fluticasone propion-salmeterol 250-50 mcg/dose blister with device 1 inh inhalation BID nicotine (polacrilex) 2 mg mini lozenge 2 mg buccal Q4H PRN (Reason: tobacco ) Rx Instructions: Dissolve 1 lozenge by mouth as directed, park in cheek, do not swallow, may use up to 10/day in combination with patch or 20/day with lozenge alone. oxybutynin chloride 5 mg tablet 5 mg PO TID propranolol 60 mg tablet 120 mg PO QDAY prazosin 1 mg capsule 6 mg PO DAILY ferrous sulfate 325 mg PO BID Discontinued carisoprodol [Soma] 350 mg tablet 350 mg PO BID PRN (Reason: muscle pain) Qty: 60 5RF hydrocodone-acetaminophen 10-325 mg tablet 1 tab PO Q4-6H PRN (Reason: pain) Qty: 240 0RF Rx Instructions: Refill today 05/28/21 due to holidays ss ondansetron 4 mg tablet,disintegrating 4 - 8 mg PO Q6H PRN (Reason: nausea and vomiting) Qty: 20 0RF cyclobenzaprine 10 mg tablet 10 mg PO TID PRN (Reason: Spasms) Follow Up Plan Follow up with: Storm Costa MD [Primary Care Provider] - Patient Disposition: Xfer SNF Prognosis: Fair Rehab Potential: Good I certify that the patient requires SNF services: Yes Overall status at discharge: patient is progressing back to baseline Discharge Orders: Discharge Order (Routine); Ordered 06/18/22 Ordered By: Kirby HERRMANN VTE Deep Vein Thrombosis/Pulmonary Embolism Present on Admission: No
[2022-06-18] MEDS: BUDESONIDE 0.5 MG/2 ML AMPUL.NEB NEB SCH (10:36)
== END 2022-06-18 13:10 | disposition home or self-care (01) | DRG 871 ==
LOC: ED 17:13 → ICU 23:55 → MEDSUR 06-16 14:25
PROVIDERS: ADMIT Internal Medicine; ATTEND Student in an Organized Health Care Education/Training Program